=== PATIENT | female | born 1975 | race Caucasian/White ===

== ENCOUNTER 2025-03-21 20:39 | Outpatient (REF) | payer BC, SELFPAY ==
--- OUTSIDE RECORDS SUMMARY | 2025-03-21 13:40 | XMS_ITS | Encounter Summary ---
Author Organization [facility] Address [address] [place] [address] Care Team Providers Care Flat Drier Name Role Phone Cody Maya MD Primary Care Provider [phone] Reason for Visit * Reason Comments Well Women Visit Encounter Details Date Type Department Care Team (Late st Contact Info) Description 03/21/2025 1:40 PM EDT Office Visit [facility] [address] [place] [address] Darling Gabriel, RESEARCH LEADER [address] [facility] [place] [address] Bilateral sciatica (Primary Dx); Well woman exam with routine gynecological exam; Encounter for screening mammogram for malignant neoplasm of breast; Postmenopausal state Social History Tobacco Use Types Packs/Day Years Used Date Smoking Tobacco: Never Smokeless Tobacco: Never Alcohol Use Standard Drinks/Week Comments Not Currently 1 (1 standard drink = 0.6 oz pur e alcohol) Maybe once a week Comments Unknown Sex and Gender Information Value Date Recorded Sex Assigned at Not on file Legal Sex Female 7:16 PM EDT Gender Identity Not on file Sexual Orientation Not on file documented as of this encounter Last Filed Vital Signs Vital Sign Reading Time Taken Comments Blood Pressure 136/72 03/21/2025 1:47 PM EDT Pulse - - Temperature - - Respiratory Rate - - Oxygen Saturation - - Inhaled Oxygen Concentration - - Weight 99.3 kg (219 lb) 03/21/2025 1:47 PM EDT Height - - Body Mass Index 34.3 05/01/2024 3:11 PM EDT documented in this encounter Progress Notes * Darling Gabriel, RESEARCH LEADER - 03/21/2025 1:40 PM EDT Reason for Appointment: Patient ID: Ivon Lance is a 49 y.o. female who presents for Well Women Visit Patient presents today for Annual Exam. MEDICATIONS Current Outpatient Medications Medication Instructions acyclovir (Zovirax) 200 MG capsule 2 capsules, Oral, 3 times daily cholecalciferol (D3-5) 5,000 Units, Oral cloNIDine (Catapres) 0.1 MG tablet TAKE 1 TO 2 TABLETS BY MOUTH AT BEDTIME NEEDED FOR INSOMNIA dehydroepiandrosterone (DHEA) 10 mg, Oral, Daily empagliflozin (Jardiance) 10 MG 1 tablet, Oral, Daily Darlyn 1.5/30 1.5-30 MG-MCG tablet tablet 1 tablet, Oral, Daily meloxicam (MOBIC) 15 mg, Oral, Daily pantoprazole (ProtoNix) 40 MG EC tablet 1 tablet, Oral, Daily phentermine (ADIPEX-P) 37.5 mg, Oral, Daily before breakfast progesterone 100 MG capsule 1 capsule, Oral, Daily traZODone (DESYREL) 50 mg, Oral TURMERIC PO 1 capsule, Oral, 2 times daily ALLERGIES Allergies Allergen Reactions Celecoxib Swelling Rofecoxib Swelling Sumatriptan-Naproxen Sodium Swelling Other Reaction(s): swelling and rash Chlorhexidine Rash Metformin And Related Rash Wound Dressing Adhesive Rash PROBLEMS Active Ambulatory Problems Diagnosis Date Noted No Active Ambulatory Problems Resolved Ambulatory Problems Diagnosis Date Noted No Resolved Ambulatory Problems Past Medical History: Diagnosis Date Migraine Obesity Prediabetes HISTORY PAST MEDICAL HISTORY SOCIAL HISTORY Past Medical History: Diagnosis Date Migraine Obesity Prediabetes Social History Tobacco Use Smoking status: Never Smokeless tobacco: Never Vaping Use Vaping status: Never Used Substance Use Topics Alcohol use: Not Currently Alcohol/week: 1.0 standard drink of alcohol Types: 1 Shots of liquor per week Comment: Maybe once a week Drug use: Never FAMILY HISTORY Family History Problem Relation Name Age of Onset Diabetes Father Cancer Paternal Grandmother Diabetes Other SURGICAL HISTORY Past Surgical History: Procedure Laterality Date CARPAL TUNNEL RELEASE Bilateral CHOLECYSTECTOMY KNEE SURGERY Bilateral SHOULDER SURGERY Right 09/12/2013 shoulder arthroscopy SHOULDER SURGERY Right 02/18/2024 R shoulder scope- MTP REVIEW OF SYSTEMS Review of Systems: Review of Systems Constitutional: Negative. HENT: Negative. Eyes: Negative. Respiratory: Negative. Cardiovascular: Negative. Gastrointestinal: Negative. Genitourinary: Positive for vaginal discharge. Reports vaginal discharge and has begun taking RAW probiotic/ prebiotic over the last 3 weeks. Musculoskeletal: Negative. Skin: Negative. Neurological: Negative. All other systems reviewed and are negative. Hematological: Negative. Endocrine: Negative. Allergic/Immunologic: Negative. OBJECTIVE Objective: Physical Exam Constitutional: Appearance: Normal appearance. Genitourinary: Right Adnexa: not tender and no mass present. Left Adnexa: not tender and no mass present. No cervical discharge. Breasts: Breasts are soft. Right: Normal. Left: Normal. HENT: Head: Normocephalic. Nose: Nose normal. Mouth/Throat: Mouth: Mucous membranes are moist. Cardiovascular: Rate and Rhythm: Normal rate. Pulmonary: Effort: Pulmonary effort is normal. Abdominal: General: Bowel sounds are normal. Palpations: Abdomen is soft. Musculoskeletal: General: Normal range of motion. Cervical back: Normal range of motion. Comments: Complaints of low back pain that began this morning; she works at the [employer] and [employer]. She denies any incontinence or retention of bowel or bladder and no lower extremity weakness. Rates pain as 4-5 out of 10 and is going to see a Chiropractor today. She would like a steroid as this has helped her in the past. Neurological: General: No focal deficit present. Mental Status: She is alert. Skin: General: Skin is warm and dry. Findings: Erythema present. Psychiatric: Mood and Affect: Mood normal. Vitals and nursing note reviewed. Exam conducted with a development lead present. Vitals: Estimated body mass index is 34.3 kg/m?? as calculated from the following: Height as of 05/01/24: 5' 7 . Weight as of this encounter: 219 lb. BP: 136/72 No LMP recorded. ASSESSMENT & PLAN ICD-10-CM 1. Well woman exam with routine gynecological exam Z01.419 THIN PREP TIS PAP AND HR HPV DNA 2. Encounter for screening mammogram for malignant neoplasm of breast Z12.31 Bilateral screening mammogram Bilateral screening mammogram 3. Postmenopausal state Z78.0 DEXA bone density Annual Exam: Patient presents today for an annual exam. Patient states she is doing well and has no complaints. Pap was obtained without difficulty. Discussed history of recurrent BV and if no improvement with pro-pre biotic could trial the Boric Acid. Patient prescribed medrol dose pack for low back pain /sciatica that began this am. She is going to follow up with a Chiropractor today and PCP if low back pain does not improve. Orders Placed This Encounter Procedures Bilateral screening mammogram DEXA bone density Follow Up: Patient is to return in one year for annual unless needed otherwise. Documented by ANTOLIN Peguero on behalf of: Darling Gabriel NP documented in this encounter Miscellaneous Notes * Addendum Note - ANTOLIN Peguero - 03/21/2025 1:40 PM EDTAddended by: IVA ESQUEDA on: 03/21/2025 02:07 PM Modules accepted: Orders documented in this encounter Plan of Treatment Scheduled Orders Name Type Priority Associated Diagnoses Orde r Schedule Bilateral screening mammogram Imaging Routine Encounter for screening mammogram for malignant neoplasm of breast Expected: 03/21/2025, Expires: 05/22/2026 DEXA bone density Imaging Routine Postmenopausal state Expected: 03/21/2025 (Approximate), Expires: 03/21/2026 THIN PREP TIS PAP AND HR HPV DNA Pathology and Cytology Routine Well woman exam with routine gynecological exam Ordered: 03/21/2025 documented as of this encounter Visit Diagnoses Diagnosis Bilateral sciatica- Primary Sciatica Well woman exam with routine gynecological exam Routine gynecological examination Encounter for screening mammogram for malignant neoplasm of breast Postmenopausal state Asymptomatic postmenopausal status (age-related) (natural) documented in this encounter Care Teams Flat Drier Relationship Specialty Start Date End Date Cody Maya MD [address] [place] [address] PCP - General Route Supervisor 05/03/23 documented as of this encounter
--- OUTSIDE RECORDS SUMMARY | 2025-03-21 20:49 | XMS_ITS | Encounter Summary ---
Author Organization [facility] Address [address] [place] [address] Care Team Providers Care Deliverer Pharmacy Name Role Phone Cody Maya MD Primary Care Provider [phone] Encounter Details Date Type Department Care Team (Latest Contact Info) Description 03/14/2025 Travel Social History Tobacco Use Types Packs/Day Years [...] on file documented as of this encounter Plan of Treatment Not on file documented as of this encounter Visit Diagnoses Not on filedocumented in this encounter Care Teams Deliverer Pharmacy Relationship Specialty Start Date End Date Cody Maya MD [address] [place] [address] PCP - General Backup Administrative Coordinator 05/03/23 documented as of this encounter
--- OUTSIDE RECORDS SUMMARY | 2025-03-21 20:49 | XMS_ITS | Clinical Summary ---
Author Organization [facility] Address [address] [place] [address] Care Team Providers Care Roller Skate Repairer Name Role Phone Cody Maya MD Primary Care Provider [phone] Allergies Active Allergy Reactions Criticality Noted Date Comments Celecoxib Swelling 05/03/2023 Chlorhexidine Rash Low 02/29/2024 Metformin And Related Rash Low 09/30/2022 Rofecoxib Swelling 08/07/2015 Sumatriptan-Naproxen Sodium Swelling 08/07/20 15 Other Reaction(s): swelling and rash Wound Dressing Adhesive Rash Low 02/29/2024 Medications acyclovir (Zovirax) 200 MG capsule Take 2 capsules by mouth in the morning and 2 capsules in the evening and 2 capsules before bedtime. 04/27/2023 Active cholecalciferol (D3-5) 5,000 Units tablet Take 5,000 Units by mouth. Active cloNIDine (Catapres) 0.1 MG tablet TAKE 1 TO 2 TABLETS BY MOUTH AT BEDTIME NEEDED FOR INSOMNIA 02/03/2023 Active empagliflozin (Jardiance) 10 MG Take 1 tablet by mouth in the morning. Active meloxicam (Mobic) 15 MG tablet Take 15 mg by mouth in the morning. Active Darlyn 1.5/30 1.5-30 MG-MCG tablet tablet Take 1 tablet by mouth in the morning. 12/06/2022 Active pantoprazole (ProtoNix) 40 MG EC tablet Take 1 tablet by mouth in the morning. 04/27/2023 Active traZODone (Desyrel) 50 MG tablet Take 50 mg by mouth. 02/03/2023 Active TURMERIC PO Take 1 capsule by mouth in the morning and 1 capsule before bedtime. Active phentermine (Adipex-P) 37.5 MG tablet Take 37.5 mg by mouth in the morning. Take before meals. 01/26/2024 Active dehydroepiandro sterone (DHEA) 10 MG tablet Take 10 mg by mouth Daily 02/23/2024 Active progesterone 100 MG capsule Take 1 capsule by mouth Daily 02/23/2024 Active methylPREDNISol one (Medrol Dospak) 4 MG tabletsIndicati ons:Bilateral sciatica Day 1: 6 tablets Day 2: 5 tablets Day 3: 4 tablets Day 4: 3 tablets Day 5: 2 tablets Day 6: 1 tablet 21 tablet 03/21/2025 Active Active Problems No known active problems Encounters Date Type Department Care Team Description 03/21/2025 1:40 PM EDT [place] [address] Darling Gabriel, MAURISIO Bilateral sciatica (Primary Dx); Well woman exam with routine gynecological exam; Encounter for screening mammogram for malignant neoplasm of breast; Postmenopausal state 03/21/2025 Bamboo flowsheet [facility] [address] [place] [address] Darling Gabriel NP 03/14/2025 Travel 02/12/2025 1:40 PM EDT Office Visit [facility] [address] [place] [address] Pillo Urbano, Vaginal discharge; STD exposure 02/12/2025 External Result Encounter [facility] External Department Unsolicited Pillo Urbano, 02/12/2025 Bamboo flowsheet [facility] [address] [place] [address] Pillo Urbano, 02/06/2025 Travel from Last 3 Months Family History Medical History Relation Name Comments Diabetes Father Diabetes Other Cancer Paternal Grandmother Relation Name Status Comments Father Other Paternal Grandmother Social History Tobacco Use Types Packs/Day Years [...] on file Sexual Orientation Not on file Last Filed Vital Signs Vital Sign Reading Time Taken Comments Blood Pressure 136/72 03/21/2025 1:47 PM EDT Pulse - - Temperature 36.2 C (97.1 F) 02/29/2024 2:57 PM EDT Respiratory Rate - - Oxygen Saturation - - Inhaled Oxygen Concentration - - Weight 99.3 kg (219 lb) 03/21/2025 1:47 PM EDT Height 170.2 cm (5' 7 ) 05/01/2024 3:11 PM EDT Body Mass Index 34.3 05/01/2024 3:11 PM EDT Plan of Treatment Health Maintenance Due Date Last Done Comments CT Colonography 1973 FIT-DNA 1973 FIT 1973 FOBT 1973 Sigmoidoscopy 1973 Pap Smear 1994 Cervical Cancer Screening 10/26/2003 HPV/Cotest 10/26/2003 Mammogram 03/28/2025 03/28/2024, 03/28/2024, 03/25 Influenza Vaccine (#1) 2025 08/02/2022, 2019 Colonoscopy 05/19/2031 05/19/2021 Colorectal Cancer Screening 05/19/2031 Procedures Procedure Name Priority Date/Time Associated Diagnosis Comments RECURRENT VAGINITIS (HTRX) Routine 02/12/2025 2:46 PM EDT BI MAMMOGRAM SCREENING BILATERAL Routine 04/22/2020 12:00 PM EDT from Last 3 Months or Most Recently Relevant to Health Maintenance Results * RECURRENT VAGINITIS (HTRX) (02/12/2025 2:46 PM EDT) ATOPOBIUM VAGINAE 0 19.961 - 24.689 ppm 02/13/2025 6:36 AM EDT [facility] ATOPOBIUM VAGINAE Not Detected 19.961 - 24.689 ppm 02/13/2025 6:36 AM EDT [facility] BVAB 2,3 (BACTERIAL VAGINOSIS ASSOCIATED BACTERIA 2, 3); MOBILUNCUS SPP 0 19.961 - 24.689 ppm 02/13/2025 6:36 AM EDT [facility] BVAB 2,3 (BACTERIAL VAGINOSIS ASSOCIATED BACTERIA 2, 3); MOBILUNCUS SPP Not Detected 19.961 - 24.689 ppm 02/13/2025 6:36 AM EDT [facility] SIRI ALBICANS, PARAPSILOSIS, TROPICALIS 0 19.961 - 30.770 ppm 02/13/2025 6:36 AM EDT [facility] SIRI ALBICANS, PARAPSILOSIS, TROPICALIS Not Detected 19.961 - 30.770 ppm 02/13/2025 6:36 AM EDT [facility] SIRI GLABRATA 0 23.000 - 32.138 ppm 02/13/2025 6:36 AM EDT [facility] SIRI GLABRATA Not Detected 23.000 - 32.138 ppm 02/13/2025 6:36 AM EDT [facility] SIRI KRUSEI 0 23.000 - 32.271 ppm 02/13/2025 6:36 AM EDT [facility] SIRI KRUSEI Not Detected 23.000 - 32.271 ppm 02/13/2025 6:36 AM EDT [facility] CHLAMYDIA TRACHOMATIS 0 23.000 - 31.467 ppm 02/13/2025 6:36 AM EDT [facility] CHLAMYDIA TRACHOMATIS Not Detected 23.000 - 31.467 ppm 02/13/2025 6:36 AM EDT [facility] GARDNERELLA VAGINALIS 0 19.961 - 24.689 ppm 02/13/2025 6:36 AM EDT [facility] GARDNERELLA VAGINALIS Not Detected 19.961 - 24.689 ppm 02/13/2025 6:36 AM EDT [facility] MEGASPHAERA (TYPES 1, 2) 0 19.961 - 24.689 ppm 02/13/2025 6:36 AM EDT [facility] MEGASPHAERA (TYPES 1, 2) Not Detected 19.961 - 24.689 ppm 02/13/2025 6:36 AM EDT [facility] NEISSERIA GONORRHOEAE 0 23.000 - 32.117 ppm 02/13/2025 6:36 AM EDT [facility] NEISSERIA GONORRHOEAE Not Detected 23.000 - 32.117 ppm 02/13/2025 6:36 AM EDT [facility] TRICHOMONAS VAGINALIS 0 23.000 - 32.119 ppm 02/13/2025 6:36 AM EDT [facility] TRICHOMONAS VAGINALIS Not Detected 23.000 - 32.119 ppm 02/13/2025 6:36 AM EDT [facility] MYCOPLASMA GENITALIUM 0 19.961 - 24.689 ppm 02/13/2025 6:36 AM EDT [facility] MYCOPLASMA GENITALIUM Not Detected 19.961 - 24.689 ppm 02/13/2025 6:36 AM EDT [facility] Tissue 02/12/2025 2:46 PM EDT 02/13/2025 1:25 AM EDT Pillo Urbano DO LAB BLOOD ORDERABLES Final Resul t [facility] [address] [place] [address] * Bilateral screening mammogram (04/22/2020 12:00 PM EDT) Anatomical Region Laterality Modality Breast Bilateral Mammography Narrative 04/22/2020 12:00 PM EDT PERFORMED AT [facility] LOCATION:[id number] Procedure Note CONVERSION, GENERIC - 02/26/2023 PERFORMED AT [facility] LOCATION:[id number] Millie Wynn DISEASE AND INSECT CONTROL BOSS IMG BI PROCEDURES Final R esult from Last 3 Months or Most Recently Relevant to Health Maintenance Insurance [employer] Care Teams Roller Skate Repairer Relationship Specialty Start Date End Date Cody Maya MD [address] [place] [address] PCP - General Shipping Supervisor 05/03/23
--- OUTSIDE RECORDS SUMMARY | 2025-03-21 20:49 | XMS_ITS | Encounter Summary ---
Author Organization [facility] Address [address] [place] [address] Care Team Providers Care Bean Sorter Name Role Phone Cody Maya MD Primary Care Provider [phone] Encounter Details Date Type Department Care Team (Late st Contact Info) Description 03/21/2025 Bamboo flowsheet [facility] [address] [place] [address] Darling Gabriel, MAURISIO [address] [facility] [address] [place] [address] Social History Tobacco Use Types Packs/Day Years [...] on filedocumented in this encounter Care Teams Bean Sorter Relationship Specialty Start Date End Date Cody Maya MD [address] [place] [address] PCP - General Lockstitch Lining Setter 05/03/23 documented as of this encounter
--- OUTSIDE RECORDS SUMMARY | 2025-03-21 20:49 | XMS_ITS | Encounter Summary ---
Author Organization [facility] Address [address] [place] [address] Care Team Providers Care Pharmacy Sales Assistant Name Role Phone Cody Maya MD Primary Care Provider [phone] Encounter Details Date Type Department Care Team (Late st Contact Info) Description 02/14/2024 Orders Only [facility] [address] [place] [id number] Kali Blakely DO [address] [place] [address] Right shoulder pain, unspecified chronicity (Primary Dx) Social History Tobacco Use Types Packs/Day Years Used Date Smoking Tobacco: Never Smokeless Tobacco: Never Alcohol Use Standard Drinks/Week Comments Never 0 (1 standard drink = 0.6 oz pur e alcohol) Comments Unknown Sex and Gender Information Value Date Recorded Sex Assigned at Not on file Legal Sex Female 7:16 PM EDT Gender Identity Not on file Sexual Orientation Not on file documented as of this encounter Plan of Treatment Not on file documented as of this encounter Visit Diagnoses Diagnosis Right shoulder pain, unspecified chronicity- Primary documented in this encounter Care Teams Pharmacy Sales Assistant Relationship Specialty Start Date End Date Cody Maya MD [address] [place] [address] PCP - General Nurse Orthopedic 05/03/23 documented as of this encounter
--- OUTSIDE RECORDS SUMMARY | 2025-03-21 20:49 | XMS_ITS | Encounter Summary ---
Author Organization [facility] Address [address] [place] [address] Care Team Providers Care Deburring And Tooling Machine Operator Name Role Phone Cody Maya MD Primary Care Provider Encounter Details Date Type Department Care Team (Late st Contact Info) Description 01/28/2024 Abstract [facility] [address] [facility] [place] [phone] Malika Hale, RN [address] [place], [place] Social History Tobacco Use Types Packs/Day Years [...] on filedocumented in this encounter Care Teams Deburring And Tooling Machine Operator Relationship Specialty Start Date End Date Cody Maya MD [address] [place] [address] PCP - General Wool Spotter 05/03/23 documented as of this encounter
--- OUTSIDE RECORDS SUMMARY | 2025-03-21 20:49 | XMS_ITS | Encounter Summary ---
Author Organization [facility] Address [address], [address] [place] [address] Care Team Providers Care Color Repairer Name Role Phone Cody Maya DO Primary Care Provider [phone] Encounter Details Date Type Department Care Team (Late st Contact Info) Description 11/10/2023 Orders Only [facility] [address] [place] [address] Provider, MD Kishore Social History Tobacco Use Types Packs/Day Years Used Date Smoking Tobacco: Never Smokeless Tobacco: Never Alcohol Use Standard Drinks/Week Comments Not Currently 0 (1 standard drink = 0.6 oz pur e alcohol) AUDIT-C Answer Date Recorded Q1: How often do you have a drink containing alcohol? Never 09/30/2022 Q2: How many drinks containi ng alcohol do you have on a typical day when you are drinking? Patient does not drink Q3: How often do you have si x or more drinks on one occasion? Never 09/30/2022 Overall Financial Resource Strain (CARDIA) Answe r Date Recorded How hard is it for you to pa y for the very basics like food, housing, medical care, and heating? Not hard at all 04/27/2023 PHQ-2 Answer Date Recorded PHQ-9 Total Score 0 08/24/2023 Hunger Vital Sign Answer Date Recorded Within the past 12 months, y ou worried that your food would run out before you got the money to buy more. Never true 04/27/20 23 Within the past 12 months, t he food you bought just didn't last and you didn't have money to get more. Never true 04/27/2023 PRAPARE - Transportation Answer Date Re corded Lack of Transportation (Medical) Not on file 04/27/2023 In the past 12 months, has l ack of transportation kept you from meetings, work, or from getting things needed for daily living? No 04/27/2023 Housing Stability Vital Sign Answer Silvio e Recorded Unable to Pay for Housing in the Last Year Not o n file 04/27/2023 Number of Places Lived in the Last Year Not on f ile 04/27/2023 In the last 12 months, was t here a time when you did not have a steady place to sleep or slept in a half-way (including now)? No 04/27/2023 Food Insecurity Answer Date Recorded Within the past 12 months, y ou worried that your food would run out before you got the money to buy more. 1 04/27/2023 Within the past 12 months, t he food you bought just didn't last and you didn't have money to get more. 1 04/27/2023 Comments No Sex and Gender Information Value Date Recorded Sex Assigned at Not on file Legal Sex Female 6:00 PM EST Gender Identity Not on file Sexual Orientation Not on file documented as of this encounter Plan of Treatment Upcoming Encounters Date Type Department Care Team (Late st Contact Info) Description 05/09/2025 3:15 PM EDT Office Visit [facility] [address] [place] [address] Cody Maya DO [address] [place] [address] 3 month fu documented as of this encounter Procedures Procedure Name Priority Date/Time Associated Diagnosis Comments COLONOSCOPY Routine 05/19/2021 4:58 PM EDT documented in this encounter Results * HM COLONOSCOPY (05/19/2021 4:58 PM EDT) us Historical Provider HEALTH MAINTENANCE Final Result documented in this encounter Visit Diagnoses Not on filedocumented in this encounter Care Teams Color Repairer Relationship Specialty [place] [address] [place] [address] PCP - General Family Medicine 03/12/23 documented as of this encounter
--- OUTSIDE RECORDS SUMMARY | 2025-03-21 20:49 | XMS_ITS | Encounter Summary ---
Author Organization [facility] Address [address], [address] [place] [address] Care Team Providers Care Nipple Maker Name Role Phone Cody Maya DO Primary Care Provider [phone] Encounter Details Date Type Department Care Team (Late st Contact Info) Description 02/07/2024 Orders Only [facility] Care [address] [place], [place] [id number] Provider, MD Kishore Social History Tobacco Use Types Packs/Day Years Used Date Smoking Tobacco: Never Smokeless Tobacco: Never Alcohol Use Standard Drinks/Week Comments Yes 2 (1 standard drink = 0.6 oz pur [...] place to sleep or slept in a fdc (including now)? No 04/27/2023 Food Insecurity Answer [...] Description 05/09/2025 3:15 PM EDT Office Visit [facility] Care [address] [place] [address] Cody Maya DO [address] [place], [place] [id number] 3 month fu documented as of this encounter Procedures Procedure Name Priority Date/Time Associated Diagnosis Comments CBC Routine 02/03/2024 9:55 AM EDT documented in this encounter Results * CBC (02/03/2024 9:55 AM EDT) Blood BLOOD SPECIMEN / Unknown us Historical Provider HEMATOLOGY ORDERABLES Fin al Result documented in this encounter Visit Diagnoses Not on filedocumented in this encounter Care Teams Nipple Maker Relationship Specialty [place] [address] [place] [id number] PCP - General Family Medicine 03/12/23 documented as of this encounter
--- OUTSIDE RECORDS SUMMARY | 2025-03-21 20:49 | XMS_ITS | Encounter Summary ---
Author Organization [facility] Address [address] [place] [address] Care Team Providers Care Sliver Machine Operator Name Role Phone Cody Maya MD Primary Care Provider [phone] Encounter Details Date Type Department Care Team (Late st Contact Info) Description 02/16/2024 Abstract [facility] [address] [place] [id number] Kali Blakely, [address] [place] [address] Social History Tobacco Use Types Packs/Day Years [...] on filedocumented in this encounter Care Teams Sliver Machine Operator Relationship Specialty Start Date End Date Cody Maya MD [address] [place] [address] PCP - General Offshore Wind Turbine Technician 05/03/23 documented as of this encounter
--- OUTSIDE RECORDS SUMMARY | 2025-03-21 20:49 | XMS_ITS | Clinical Summary ---
Author Organization [facility] Address [address], [address] [place] [address] Care Team Providers Care Freight Rate Specialist Name Role Phone Alex Mayaory Natalee CHATMAN Primary Care Provider [phone] Allergies Active Allergy Reactions Criticality Noted Date Comments Metformin And Related Rash Low 09/30/2022 Sumatriptan-Naproxen Sodium 10/14/19 21 Rofecoxib 10/14/2020 Medications Cholecalciferol (VITAMIN D3) 125 MCG (5000 UT) TABS Take 1 tablet by mouth Active Turmeric 500 MG CAPS Take 1 capsule by mouth 2 times daily Active pantoprazole (PROTONIX) 40 MG tablet TAKE 1 TABLET BY MOUTH DAILY 90 tablet 3 4 Active acyclovir (ZOVIRAX) 200 MG capsule Take 2 capsules by mouth 3 times daily 30 capsule 5 4 Active cloNIDine (CATAPRES) 0.1 MG tabletIndications :Chronic insomnia Take 1 tablet by mouth at bedtime 180 tablet 3 4 Active DHEA 10 MG CAPSIndications:H ormone imbalance,Low serum progesterone Take 10 mg by mouth daily 30 capsule 2 4 Active empagliflozin (JARDIANCE) 10 MG tabletIndications :Type 2 diabetes mellitus without complication, without long-term current use of insulin (HCC) Take 1 tablet by mouth daily 90 tablet 3 4 Active meloxicam (MOBIC) 15 MG tablet Take 1 tablet by mouth daily as needed for Pain 90 tablet 3 4 Active Norethindrone Acet-Ethinyl Est 1.5-30 MG-MCG TABSIndications:H ormone imbalance Take 1 tablet by mouth daily 4 packet 3 4 Active pantoprazole (PROTONIX) 40 MG tablet Take 1 tablet by mouth daily 90 tablet 3 4 Active traZODone (DESYREL) 50 MG tabletIndications :Chronic insomnia Take 1 tablet by mouth nightly 90 tablet 3 4 Active progesterone (PROMETRIUM) 100 MG CAPS capsuleIndication s:Hormone imbalance,Low serum progesterone Take 1 capsule by mouth daily 90 capsule 3 4 Active phentermine (ADIPEX-P) 37.5 MG tabletIndications :Class 1 obesity due to excess calories without serious comorbidity with body mass index (BMI) of 33.0 to 33.9 in adult Take 1 tablet by mouth every morning (before breakfast) for 90 days. Max Daily Amount: 37.5 mg 30 tablet 2 5 05/06/20 25 Active fluconazole (DIFLUCAN) 150 MG tablet Take 1 tablet by mouth daily for 3 days 3 tablet 5 03/08/20 25 Active Problems Problem Noted Date Diagnosed Date Daytime somnolence 12/09/2023 Obstructive sleep apnea syndrome 12/09/2023 Diabetes mellitus Encounters Date Type Department Care Team Description 02/05/2025 3:45 PM EDT Office Visit [facility] Primary Care [address] [place], [place] [phone] Cody Maya, DO Class 1 obesity due to excess calories without serious comorbidity with body mass index (BMI) of 33.0 to 33.9 in adult (Primary Dx); Type 2 diabetes mellitus without complication, without long-term current use of insulin (HCC) from Last 3 Months Immunizations Immunization Administration Dates Next Due Influenza, FLUARIX, FLULAVAL , FLUZONE (age 6 mo+) and AFLURIA, (age 3 y+), Quadv PF, 0.5mL 06/20/2020 Social History Tobacco Use Types Packs/Day Years Used Date Smoking Tobacco: Never Smokeless Tobacco: Never Tobacco Cessation:Counseling Given: No Alcohol Use Standard Drinks/Week Comments Yes 2 (1 standard drink = 0.6 oz pur e alcohol) [facility] Utilities Answer Date Recorded In the past 12 months has [employer] (acquired by [employer] in 2014), [employer], or water company threatened to shut off services in your home? No 10/29/2024 AUDIT-C Answer Date Recorded Q1: How often [...] care, and heating? Not hard at all 07/26/2024 PHQ-2 Answer Date Recorded PHQ-9 Total Score 0 10/29/2024 Hunger Vital Sign Answer Date Recorded Within the past 12 months, y ou worried that your food would run out before you got the money to buy more. Never true 10/30/19 25 Within the past 12 months, t he food you bought just didn't last and you didn't have money to get more. Never true 10/29/2024 PRAPARE - Transportation Answer Date Re corded In the past 12 months, has l ack of transportation kept you from medical appointments or from getting medications? No 04/2025 In the past 12 months, has l ack of transportation kept you from meetings, work, or from getting things needed for daily living? No 10/29/2024 Housing Stability Vital Sign Answer Silvio e Recorded Unable to Pay for Housing in the Last Year Not o n file 04/27/2023 Number of Places Lived in the Last Year Not on f ile 04/27/2023 In the last 12 months, was t here a time when you did not have a steady place to sleep or slept in a detention (including now)? No 04/27/2023 Housing Stability Vital Sign Answer Silvio e Recorded In the last 12 months, was t here a time when you were not able to pay the mortgage or rent on time? No 10/29/2024 In the past 12 months, how m any times have you moved where you were living? 0 10/29/2024 At any time in the past 12 m [facility], were you homeless or living in a detention (including now)? No 10/29/2024 Food Insecurity Answer Date Recorded Within the past 12 months, y ou worried that your food would run out before you got the money to buy more. 1 10/29/2024 Within the past 12 months, t he food you bought just didn't last and you didn't have money to get more. 1 10/29/2024 Comments No Sex and Gender Information Value Date Recorded Sex Assigned at Not on file Legal Sex Female 6:00 PM EST Gender Identity Not on file Sexual Orientation Not on file Last Filed Vital Signs Vital Sign Reading Time Taken Comments Blood Pressure 138/80 02/05/2025 3:27 PM EDT Pulse 98 02/05/2025 3:27 PM EDT Temperature 36.4 C (97.5 F) 02/05/2025 3:27 PM EDT Respiratory Rate 12 08/24/2023 12:10 PM EST Oxygen Saturation 99% 02/05/2025 3:27 PM EDT Inhaled Oxygen Concentration - - Weight 98.9 kg (218 lb) 02/05/2025 3:27 PM EDT Height 172.7 cm (5' 8 ) 02/05/2025 3:27 PM EDT Body Mass Index 33.15 02/05/2025 3:27 PM EDT Plan of Treatment Upcoming Encounters Date Type Department Care Team (Late st Contact Info) Description 05/09/2025 3:15 PM EDT Office Visit [facility] Primary Care [address] [place] [address] Cody Maya DO [address] [place] [address] 3 month fu Health Maintenance Due Date Last Done Comments HIV screen 1988 Diabetic Alb to Cr ratio (uACR) test 10/26/1991 Diabetic retinal exam 10/26/1991 Hepatitis C screen 10/26/1991 DTaP/Tdap/Td vaccine (1 - Tdap) 1992 Hepatitis B vaccine (1 of 3 - 19+ 3-dose series) 1992 Pneumococcal 50+ years Vaccine (1 of 2 - PCV) 1992 Pap smear 1994 FIT/FOBT: Average risk 2018 Fecal-DNA (Cologuard): Average risk 2018 Sigmoidoscopy/CT colonography 2018 Shingles vaccine (1 of 2) 10/26/2023 COVID-19 Vaccine ( season) 2024 05/12/2021, 04/21/2021 Flu vaccine (#1) 03/23/2025 06/20/2020 Breast cancer screen 03/28/2025 03/28/2024, 12/18/2022, 04/22/2020 Depression Screen 10/29/2025 10/29/2024, 10/29/2024 A1C test (Diabetic or Prediabetic) 11/01/2025 11/01/2024, 07/26/2024, 11/21/2023, Additional history exists GFR test (Diabetes, CKD 3-4, OR last GFR 15-59) 11/10/2025 11/10/2024, 11/21/2023 Lipids 11/10/2025 11/10/2024, 10/23, 11/10/2022 Diabetic foot exam 02/05/2026 02/05/2025, 0 02/05/2025, 02/05/2025, Additional history exists Cervical cancer screen 04/30/2026 HPV (without or with Pap) 04/30/2026 04/30/2021 Colonoscopy 05/19/2031 05/19/2021 Colorectal Cancer Screen 05/19/2031 Diabetes screen Discontinued 11/01/2024, 12/11/2023, 11/21/2023, Additional history exists Hepatitis A vaccine Aged Out No longe r eligible based on patient's age to complete this topic Hib vaccine Aged Out No longer eligi ble based on patient's age to complete this topic Meningococcal (ACWY) vaccine Aged Out No longer eligible based on patient's age to complete this topic Meningococcal B vaccine Aged Out No l onger eligible based on patient's age to complete this topic Polio vaccine Aged Out No longer elig ible based on patient's age to complete this topic Procedures Procedure Name Priority Date/Time Associated Diagnosis Comments COMPREHENSIVE METABOLIC PANEL Routine 11/10/2024 8:26 AM EDT Encounter for routine adult health examination without abnormal findings LIPID, FASTING Routine 11/10/2024 8:26 AM EDT Encounter for routine adult health examination without abnormal findings POCT GLYCOSYLATED HEMOGLOBIN (HGB A1C) Routine 11/01/2024 4:35 PM EDT Type 2 diabetes mellitus without complication, without long-term current use of insulin (HCC) RENETTA WILNER DIGITAL SCREEN SELF REFERRAL W OR WO CAD BILATERAL Routine 03/28/2024 10:07 AM EDT Encounter for screening mammogram for breast cancer HM COLONOSCOPY Routine 05/19/2021 4:58 PM EDT HM HPV Routine 04/30/2021 1:03 PM EDT from Last 3 Months or Most Recently Relevant to Health Maintenance Results * (ABNORMAL) Lipid, Fasting (11/10/2024 8:26 AM EDT) Cholesterol, Fasting 200(H) 0 - 199 mg/dL 11/10/2024 8:26 AM EDT [facility] Comment: Cholesterol Guidelines: <200 Desirable 200-240 Borderline >240 Undesirable HDL 53 >40 mg/dL 11/10/2024 8:26 AM EDT [facility] Comment: HDL Guidelines: <40 Undesirable 40-59 Borderline >59 Desirable LDL Cholesterol 126(H) 0 - 100 mg/dL 11/10/2024 8:26 AM EDT [facility] Comment: LDL Guidelines: <100 Desirable 100-129 Near to/above Desirable 130-159 Borderline >159 Undesirable Direct (measured) LDL and calculated LDL are not interchangeable tests. Chol/HDL Ratio 3.8 11/10/2024 8:26 AM EDT [facility] Triglyceride, Fasting 104 0 - 149 mg/dL 11/10/2024 8:26 AM EDT [facility] Comment: Triglyceride Guidelines: <150 Desirable 150-199 Borderline 200-499 High >499 Very high Based on AHA Guidelines for fasting triglyceride, May 2012. VLDL 21 1 - 30 mg/dL 11/10/2024 8:26 AM EDT [facility] Blood BLOOD SPECIMEN / Unknown 11/10/2024 8:26 AM EDT 11/10/2024 8:27 AM EDT us Cody Maya DO CHEMISTRY ORDERABLES Final Re sult [facility] [address] [place] [address], [facility] [phone] [facility] [address] [place] [address], [facility] [phone] * (ABNORMAL) Comprehensive Metabolic Panel (11/10/2024 8:26 AM EDT) Sodium 135 135 - 144 mmol/L 11/10/2024 8:26 AM EDT [facility] Potassium 4.1 3.7 - 5.3 mmol/L 11/10/2024 8:26 AM EDT [facility] Chloride 103 98 - 107 mmol/L 11/10/2024 8:26 AM EDT [facility] CO2 26 20 - 31 mmol/L 11/10/2024 8:26 AM EDT [facility] Anion Gap 6(L) 9 - 17 mmol/L 11/10/2024 8:26 AM EDT [facility] Glucose 91 70 - 99 mg/dL 11/10/2024 8:26 AM EDT [facility] BUN 16 6 - 20 mg/dL 11/10/2024 8:26 AM T [facility] Creatinine 0.8 0.5 - 0.9 mg/dL 11/10/2024 8:26 AM EDT [facility] Est, Glom Filt Rate 89 >60 mL/min/1.7 3m2 11/10/2024 8:26 AM EDT [facility] Comment: These results are not intended for use in patients <18 years of age. eGFR results are calculated without a race factor using the 2020 CKD-EPI equation. Careful clinical correlation is recommended, particularly when comparing to results calculated using previous equations. The CKD-EPI equation is less accurate in patients with extremes of muscle mass, extra-renal metabolism of creatine, excessive creatine ingestion, or following therapy that affects renal tubular secretion. Calcium 8.9 8.6 - 10.4 mg/dL 11/10/2024 8:26 AM EDT [facility] Total Protein 6.9 6.4 - 8.3 g/dL 11/10/2024 8:26 AM EDT [facility] Albumin 3.9 3.5 - 5.2 g/dL 11/10/2024 8:26 AM EDT [facility] Albumin/Globulin Ratio 1.3 1.0 - 2.5 11/10/2024 8:26 AM EDT [facility] Total Bilirubin 0.4 0.3 - 1.2 mg/dL 11/10/2024 8:26 AM EDT [facility] Alkaline Phosphatase 84 35 - 104 U/L 11/10/2024 8:26 AM EDT [facility] ALT 19 5 - 33 U/L 11/10/2024 8:26 AM EDT [facility] AST 24 <32 U/L 11/10/2024 8:26 AM EDT [facility] Blood BLOOD SPECIMEN / Unknown 11/10/2024 8:26 AM EDT 11/10/2024 8:27 AM EDT us Cody Maya DO CHEMISTRY ORDERABLES Final Re sult [facility] [address] [place] [address], [facility] [phone] * POCT glycosylated hemoglobin (Hb A1C) (11/01/2024 4:35 PM EDT) Hemoglobin A1C 5.4 % BLOOD SPECIMEN / Unknown 11/01/2024 4:35 PM EDT us Cody Maya DO POINT OF CARE TEST ORDERABLES Final Result * RENETTA WILNER DIGITAL SCREEN SELF REFERRAL W OR WO CAD BILATERAL (03/28/2024 10:07 AM EDT) Anatomical Region Laterality Modality Breast Bilateral Mammography 03/28/2024 11:1 6 AM EDT Impressions 03/28/2024 11:30 AM EDT No mammographic evidence of malignancy BIRADS: BIRADS - CATEGORY 1 Negative. Normal interval follow-up is recommended in 12 months. OVERALL ASSESSMENT - NEGATIVE A letter of notification will be sent to the patient regarding the results. The [employer] recommends annual mammograms for women 40 years and older. Narrative 03/28/2024 11:30 AM EDT EXAMINATION: SCREENING DIGITAL BILATERAL MAMMOGRAM WITH TOMOSYNTHESIS, 03/28/2024 TECHNIQUE: Screening mammography of the bilateral breasts was performed with tomosynthesis. 2D standard and 3D tomosynthesis combination imaging performed through both breasts in the MLO and CC projection. Computer aided detection was utilized in the interpretation of this exam. COMPARISON: December 18, 2022 and April 22, 2020 HISTORY: Screening. FINDINGS: The breasts are heterogeneously dense which can obscure small masses. There is no dominant mass architectural distortion or concerning grouping of microcalcification in either breast. Cody Maya DO IM MAMMOGRAPHY ORDERABLES Fi nal Result * COLONOSCOPY (05/19/2021 4:58 PM EDT) Historical Provider HEALTH MAINTENANCE Final Result * HPV (04/30/2021 1:03 PM EDT) Impressions Bree Bustillo MA - 04/30/2021 1:03 PM EDT PAP [id number] Component Ref Range & Units 2 yr ago Comments HUMAN PAPILLOMA VIRUS 16+18+31+33+35+39+45+51+52+56+58+59+66+68 DNA: Negative Negative This nucleic acid amplification test detects fourteen high- risk HPV types (16,18,31,33,35,39,45,51,52,56,58,59,66,68) without differentiation. Performed at: [facility] [address] [place], [place] [id number] MD Soraida Giles Performed at: =[facility] [address] [place], [place] [id number] MD Soraida Giles CYTOLOGY REPORT:FIND:PT:CVX/VAG:DOC:CYTO STAIN Note TESTS RESULT FLAG UNITS REF RANGE LAB Clinician Provided Cytology Information Source.............Endoc[employer]ix No. of containers..01 ThinPrep Vial DIAGNOSIS: 01 NEGATIVE FOR INTRAEPITHELIAL LESION OR MALIGNANCY. CELLULAR CHANGES ASSOCIATED WITH INFLAMMATION ARE PRESENT. Specimen adequacy: 01 Satisfactory for evaluation. Endocervical and/or squamous metaplastic cells (endocervical component) are present. Performed by: Amandeep Milligan Associate Director Of Development ([facility]) . 01 Note: Note 01 The Pap smear is a screening test designed to aid in the detection of premalignant and malignant conditions of the uterine cervix. It is not a diagnostic procedure and should not be used as the sole means of detecting cervical cancer. Both false-positive and false-negative reports do occur. Test Methodology: Note 01 This liquid based ThinPrep(R) pap test was screened with the use of an image guided system. FLAG LEGEND: L-Low Normal,H-High Normal,LL-Alert Low,HH-Alert High <-Panic Low,>-Panic High,A-Abnormal,AA-Critical Abnormal Performed at: [address] [id number] Tisha Quigley MD, GYNECOLOGICAL BODY SITE ENDOCERVIX COLLECTION TECHNIQUE BRUSH-SPATULA PERFORMING LAB: see note EVELYNK - [facility] unless otherwise specified [address] [place] [address] Resulting Agency [facility] Specimen Collected: 04/30/21 Performed by: [facility] Last Resulted: 05/05/21 Received From: [facility] Result Received: 08/24/23 11:46 View Encounter us Historical Provider HEALTH MAINTENANCE Edited Result - Final from Last 3 Months or Most Recently Relevant to Health Maintenance Insurance [place] [address] [place] [phone] Care Teams Freight Rate Specialist Relationship Specialty Start Date End Date Cody Maya DO [address] [place], [place] [phone] PCP - General Family Medicine 03/12/23
--- OUTSIDE RECORDS SUMMARY | 2025-03-21 20:49 | XMS_ITS | Clinical Summary ---
Author Organization [facility] Address [address] [place] [id number] Care Team Providers Care Application Development Team Lead Name Role Phone Unavailable Primary Care Provider Unavailabl e Allergies Active Allergy Reactions Criticality Noted Date Comments Sumatriptan-Naproxen Swelling 08/07/2015 Rofecoxib Swelling 08/07/2015 Medications pantoprazole (PROTONIX) 40 mg grps Take 40 mg by mouth. Active citalopram (CELEXA) 20 mg tablet Take 20 mg by mouth once daily. Active acetaminophen-d ichloralphenazo ne-isomethepten e (MIDRIN) 65-100-325 mg per capsule Take 1 capsule by mouth four times daily as needed. Active ASPIRIN/ACETAMI NOPHEN/CAFFEINE (EXCEDRIN MIGRAINE ORAL) Take by mouth. Active doxepin capsule 10 mg Take 2 capsules by mouth daily at bedtime. 60 capsule 11 08/07/2015 Active Active Problems Problem Noted Date Diagnosed Date White matter abnormality on MRI of brain 015 Overview (08/07/2015): Most likely due to underlying migraine history Migraine with aura and witho ut status migrainosus, not intractable 08/07/2015 Pain in joint, lower leg 07/01/2007 Family History Medical History Relation Comments Diabetes Father type II Headache Other 2 sisters, broth er, mom, grandparents Cancer Paternal Aunt cervical Cancer Paternal Grandmother cervical Cancer Sister 6 cervical Cerebral Palsy [Other] Sister 7 spina bif kaushik Multiple Sclerosis Sister 7 uncertain if diagnosis is correct; not on meds Seizures Sister 7 Thyroid Sister 8 Diabetes Son 3 type I Relation Status Comments Brother Alive Daughter 1 Alive Daughter 2 Alive Father Alive Mother Alive Other Paternal Aunt Paternal Grandmother Sister 1 Alive Sister 2 Alive Sister 3 Alive Sister 4 Alive Sister 5 Alive Sister 6 Sister 7 Sister 8 Son 1 Alive Son 2 Alive Son 3 Social History Tobacco Use Types Packs/Day Years Used Date Smoking Tobacco: Never Alcohol Use Standard Drinks/Week Comments No 0 (1 standard drink = 0.6 oz pur e alcohol) Comments Unknown Sex and Gender Information Value Date Recorded Sex Assigned at Not on file Legal Sex Female 8:11 AM EST Gender Identity Not on file Sexual Orientation Not on file Occupation Industry Job Start Date Job End Date [employer] Not on file Not on file Not on f ile Last Filed Vital Signs Vital Sign Reading Time Taken Comments Blood Pressure 131/58 08/07/2015 10:18 AM EST Pulse 80 08/07/2015 10:18 AM EST Temperature - - Respiratory Rate - - Oxygen Saturation - - Inhaled Oxygen Concentration - - Weight 91.6 kg (202 lb) 08/07/2015 10:18 AM EST Height - - Body Mass Index - - Plan of Treatment Health Maintenance Due Date Last Done Comments Anxiety Screening 10/26/1991 Depression Screening 10/26/1991 HIV Screening 10/26/1991 Hepatitis C Screening 10/26/1991 DTaP,Tdap,Td Vaccine (1 - Tdap) 1992 Hepatitis B Vaccine (1 of 3 - 19+ 3-dose series) 10/25 Cervical Cancer Screening [address] Colonography 2018 Cologuard (FIT-DNA) 2018 Colonoscopy 2018 Colorectal Cancer Screening 2018 Diabetes Screening 2018 Fecal Occult Blood 2018 Lipid Screening 2018 Sigmoidoscopy 2018 Pneumococcal Vaccine: 50+ (1 of 1 - PCV) 10/26/2023 Shingrix Vaccine (1 of 2) 10/26/2023 Influenza Vaccine (#1) 2025 Insurance [employer]
[2025-03-26 11:08] LABS: Age Gdln ACOG Testing Note (.); IGP, Aptima HPV, rfx 16/18,45 Note (.)
== END 2025-03-21 20:40 | disposition home or self-care (01) ==
LOC: LAB 20:39
PROVIDERS: Visit Provider Nurse Practitioner Family
DX: Z01.419 Encounter for gynecological examination (general) (routine) without abnormal findings (principal)
CPT/HCPCS: 87624; 88175

== ENCOUNTER 2025-07-17 11:00 | Outpatient (OUT) | payer BC, SELFPAY ==
--- OUTSIDE RECORDS SUMMARY | 2025-07-10 13:10 | XMS_ITS | Encounter Summary ---
Author Organization [facility] Address [address] [place] [address] Care Team Providers Care Aluminizer Name Role Phone Cody Maya MD Primary Care Provider [phone] Reason for Visit * ReasonCommentstongueMucocele of tongue Encounter Details DateTypeDepartmentCare Team (Latest Contact Info)Uwriocvqtxb30/18/2025 1:10 PM ESTOffice Visit [facility] [address] [facility] [place] [address] [place] [phone] Flaquita Barajas MD [address] [facility] [address] [place], [place] [id number] Tongue mass (Primary Dx) Social History Tobacco UseTypesPacks/DayYears UsedDateSmoking Tobacco: NeverSmokeless Tobacco: NeverAlcohol UseStandard Drinks/WeekCommentsNot Currently1 (1 standard drink = 0.6 oz pure alcohol)Maybe once a weekCommentsUnknownSex and Gender InformationValueDate RecordedSex Assigned at BirthNot on fileLegal SexFemale 11/04/2022 7:16 PM EDTGender IdentityNot on fileSexual OrientationNot on file documented as of this encounter Last Filed Vital Signs Vital SignReadingTime TakenCommentsBlood Xiookpoe362/6807/10/2025 1:02 PM EST [id number] 1:02 PM ESTTemperature--Respiratory Rate--Oxygen Saturation-- Inhaled Oxygen Concentration--Jzbkve04.9 kg (218 lb)07/10/2025 1:02 PM ESTHeight 170.2 cm (5' 7 )07/10/2025 1:02 PM ESTBody Mass Index34.14109/09/2024 1:02 PM EST documented in this encounter Progress Notes * Flaquita Barajas MD - 07/10/2025 1:10 PM EST Subjective Patient ID: Ivon Lance is a 49 y.o. female who presents for tongue (Mucocele of tongue) Pt reports a few month h/o a RT lateral tongue nodule. Fluctuates in size and pain. No tx or bx. Review of Systems All other systems reviewed and are negative. Family History[1] Active Ambulatory Problems Diagnosis Date Noted Calcaneal spur of left foot 07/04/2025 Closed nondisplaced fracture of base of second metacarpal bone of right hand 07/04/2025 Contusion of hand 07/04/2025 Daytime somnolence 12/09/2023 Diabetes mellitus (HCC) 07/04/2025 Equinus deformity of foot 07/04/2025 Migraine with aura and without status migrainosus, not intractable 08/07/2015 Obesity 07/04/2025 Obstructive sleep apnea syndrome 12/09/2023 Pain in joint, lower leg 07/01/2007 Plantar fascial fibromatosis 07/04/2025 Primary localized osteoarthrosis of shoulder region 07/04/2025 White matter abnormality on MRI of brain 08/07/2015 Resolved Ambulatory Problems Diagnosis Date Noted No Resolved Ambulatory Problems Past Medical History: Diagnosis Date Migraine Prediabetes Surgical History[2] Allergies[3] Medications Ordered Prior to Encounter[4] Objective Last Recorded Vitals Vitals: 07/10/25 1302 BP: 123/68 Pulse: 94 ENT Physical Exam Constitutional Appearance: patient appears well-developed, well-nourished and well-groomed, Head and Face Appearance: head appears normal and face appears atraumatic; Ear Ear Canals: right ear canal normal; left ear canal normal; Tympanic Membranes: right tympanic membrane normal; left tympanic membrane normal; Nose External Nose: nares patent bilaterally; external nose normal; Internal Nose: septum normal; Oral Cavity/Oropharynx Tongue: tongue mass present; Oral mucosa: normal; Hard palate: normal; Soft palate: normal; Tonsils: normal; OC/OP comments: 3mm sessile nodule RT lat tongue Neck Neck: neck normal; neck palpation normal; Thyroid: thyroid normal; Respiratory Inspection: breathing unlabored; normal breathing rate; Auscultation: breath sounds are clear; Cardiovascular Inspection: extremities are warm and well perfused; no peripheral edema present; Auscultation: regular rate and rhythm; Assessment/Plan Diagnoses and all orders for this visit: Tongue mass Pt has a nodule on the lateral tongue most c/w a fibroma. It is bothersome and symptomatic. I will plan removal under local anesthesia [1] Family History Problem Relation Name Age of Onset Diabetes Father Isaías Cancer Paternal Grandmother Malika Diabetes Other Osteoarthritis Mother Yenni Migraines Maternal Grandfather Hernan [2] Past Surgical History: Procedure Laterality Date CARPAL TUNNEL RELEASE Bilateral CHOLECYSTECTOMY KNEE SURGERY Bilateral SHOULDER SURGERY Right 09/12/2013 shoulder arthroscopy SHOULDER SURGERY Right 02/18/2024 R shoulder scope- MTP [3] Allergies Allergen Reactions Celecoxib Swelling Rofecoxib Swelling Sumatriptan-Naproxen Sodium Swelling Other Reaction(s): swelling and rash Chlorhexidine Rash Metformin And Related Rash Wound Dressing Adhesive Rash [4] Current Outpatient Medications on File Prior to Visit Medication Sig Dispense Refill acyclovir (Zovirax) 200 MG capsule Take 2 capsules by mouth in the morning and 2 capsules in the evening and 2 capsules before bedtime. cholecalciferol (D3-5) 5,000 Units tablet Take 5,000 Units by mouth cloNIDine (Catapres) 0.1 MG tablet dehydroepiandrosterone (DHEA) 10 MG tablet Take 10 mg by mouth Daily empagliflozin (Jardiance) 10 MG Take 1 tablet by mouth Daily Darlyn 1.5/30 1.5-30 MG-MCG tablet tablet Take 1 tablet by mouth Daily meloxicam (Mobic) 15 MG tablet Take 15 mg by mouth Daily pantoprazole (ProtoNix) 40 MG EC tablet Take 1 tablet by mouth Daily progesterone 100 MG capsule Take 1 capsule by mouth Daily traZODone (Desyrel) 50 MG tablet Take 50 mg by mouth TURMERIC PO Take 1 capsule by mouth in the morning and 1 capsule before bedtime. phentermine (Adipex-P) 37.5 MG tablet Take 37.5 mg by mouth in the morning. Take before meals. No current facility-administered medications on file prior to visit. documented in this encounter Plan of Treatment DateTypeDepartmentCare Team (Latest Contact Info)Osvzgtfypas15/12/2025 1:30 PM ESTOffice Visit [facility] [address] [facility] [place] [address] [place] [address] Flaquita Barajas MD [address] [facility] [address] [place] [address] documented as of this encounter Visit Diagnoses Diagnosis Tongue mass- Primary Swelling, mass, or lump in head and neck documented in this encounter Care Teams Team MemberRelationshipSpecialtyStart DateEnd Date Cody Maya MD [address] [place] [address] PCP - GeneralGeneral Practice05/03/23documented as of this encounter
--- OUTSIDE RECORDS SUMMARY | 2025-07-17 11:03 | XMS_ITS | Encounter Summary ---
Author Organization [facility] Address [address] [place] [address] Care Team Providers Care Faceter Name Role Phone Cody Maya MD Primary Care Provider [phone] Encounter Details DateTypeDepartmentCare Team (Latest Contact Info)Izplaevblsy76/18/2025Travel Social History Tobacco UseTypesPacks/DayYears UsedDateSmoking Tobacco: NeverSmokeless Tobacco: NeverAlcohol UseStandard Drinks/WeekCommentsNot Currently1 (1 standard drink = 0.6 oz pure alcohol)Maybe once a weekCommentsUnknownSex and Gender InformationValueDate RecordedSex Assigned at BirthNot on fileLegal SexFemale 11/04/2022 7:16 PM EDTGender IdentityNot on fileSexual OrientationNot on file documented as of this encounter Plan of Treatment DateTypeDepartmentCare Team (Latest Contact Info)Cxowdrgeilq22/12/2025 1:30 PM ESTOffice Visit [facility] [address] [place] [address] [place] [phone] Flaquita Barajas MD 112 [facility] [address] [place] [address] documented as of this encounter Visit Diagnoses Not on filedocumented in this encounter Care Teams Team MemberRelationshipSpecialtyStart DateEnd Date Cody Maya MD [address] [place], [place] [phone] PCP - GeneralGeneral Practice05/03/23documented as of this encounter
--- OUTSIDE RECORDS SUMMARY | 2025-07-17 11:03 | XMS_ITS | Encounter Summary ---
Author Organization [facility] Address [address] [place] [address] Care Team Providers Care Securities Trader Name Role Phone Cody Maya MD Primary Care Provider [phone] Encounter Details DateTypeDepartmentCare Team (Latest Contact Info)Goxhwlsnlgb57/18/2025amboo flowsheet [facility] [address] [place] [address] [place] [phone] Flaquita Barajas MD [address] [facility] [address] [place] [address] Social History Tobacco UseTypesPacks/DayYears UsedDateSmoking Tobacco: NeverSmokeless Tobacco: NeverAlcohol UseStandard Drinks/WeekCommentsNot Currently1 (1 standard drink = 0.6 oz pure alcohol)Maybe once a weekCommentsUnknownSex and Gender InformationValueDate RecordedSex Assigned at BirthNot on fileLegal SexFemale 11/04/2022 7:16 PM EDTGender IdentityNot on fileSexual OrientationNot on file documented as of this encounter Plan of Treatment DateTypeDepartmentCare Team (Latest Contact Info)Zbfzgpgjxuc62/12/2025 1:30 PM ESTOffice Visit [facility] [address] [place] [address] [facility] [place] [address] Flaquita Barajas MD [address] [place] [address] [place], [place] [phone] documented as of this encounter Visit Diagnoses Not on filedocumented in this encounter Care Teams Team MemberRelationshipSpecialtyStart DateEnd Date Cody Maya MD [address] [place] [address] PCP - GeneralGeneral Practice05/03/23documented as of this encounter
--- OUTSIDE RECORDS SUMMARY | 2025-07-17 11:03 | XMS_ITS | Clinical Summary ---
Author Organization [facility] Address [address], [address] [place] [address] Care Team Providers Care Jr. Java Developer Name Role Phone Francesco Cody Natalee CHATMAN Primary Care Provider [phone] Allergies Active AllergyReactionsCriticalityNoted DateCommentsMetformin And RelatedRashLow 09/30/2022Sumatriptan-Naproxen Plpsdo6410/14/20208261Vguspggpo81/22/2021 Medications MedicationSigDispense QuantityRefillsLast FilledStart DateEnd DateStatus Cholecalciferol (VITAMIN D3) 125 MCG (5000 UT) TABS Take 1 tablet by mouthActive Turmeric 500 MG CAPS Take 1 capsule by mouth 2 times dailyActive pantoprazole (PROTONIX) 40 MG tablet TAKE 1 TABLET BY MOUTH DAILY 90 tablet ctive acyclovir (ZOVIRAX) 200 MG capsule Take 2 capsules by mouth 3 times daily 30 capsule ctive cloNIDine (CATAPRES) 0.1 MG tablet Indications:Chronic insomniaTake 1 tablet by mouth at bedtime 180 tablet ctive DHEA 10 MG CAPS Indications:Hormone imbalance,Low serum progesteroneTake 10 mg by mouth daily 30 capsule ctive empagliflozin (JARDIANCE) 10 MG tablet Indications:Type 2 diabetes mellitus without complication, without long-term current use of insulin (HCC)Take 1 tablet by mouth daily 90 tablet ctive meloxicam (MOBIC) 15 MG tablet Take 1 tablet by mouth daily as needed for Pain 90 tablet ctive Norethindrone Acet-Ethinyl Est 1.5-30 MG-MCG TABS Indications:Hormone imbalanceTake 1 tablet by mouth daily 4 packet ctive pantoprazole (PROTONIX) 40 MG tablet Take 1 tablet by mouth daily 90 tablet ctive traZODone (DESYREL) 50 MG tablet Indications:Chronic insomniaTake 1 tablet by mouth nightly 90 tablet ctive progesterone (PROMETRIUM) 100 MG CAPS capsule Indications:Hormone imbalance,Low serum progesteroneTake 1 capsule by mouth daily 90 capsule ctive baclofen (LIORESAL) 10 MG tablet Indications:Chronic bilateral low back pain without sciaticaTake 1 tablet by mouth 3 times daily 30 tablet 05/02/2025tive Active Problems ProblemNoted DateDiagnosed DateDaytime rtmfbdtahb59/18/2024Obstructive sleep apnea urebhxsm76/18/2024iabetes mellitus Encounters DateTypeDepartmentCare JiohDzuxrrurrhf59/01/2025 2:41 PM EDT - 05/25/2025 11:59 PM EDTHospital Encounter [facility] [address] [place] [address] Encounter for screening mammogram for malignant neoplasm of breast Discharge Disposition: Home or Self Care05/23/2025 2:41 PM EDT - 05/25/2025 11:59 PM EDTHospital Encounter [facility] Dexa Scan [address] [place] [address] Postmenopausal status Discharge Disposition: Home or Self Care05/13/2025 7:50 AM EDT - 05/13/2025 11:59 PM EDTHospital Encounter [facility] [address] [place] [address] Hormone imbalance; Vitamin D deficiency; Type 2 diabetes mellitus without complication, without long-term current use of insulin (HCC) Discharge Disposition: Home or Self Care05/10/2025Transcribe Orders [facility] [address] [place] [address] Darling Gabriel APRN - CNP Postmenopausal status (Primary Dx); Encounter for screening mammogram for malignant neoplasm of cdawfg0205/10/2025 Transcribe Orders [facility] [address] [place] [id number] Darling Gabriel APRN - CNP Postmenopausal status (Primary Dx); Encounter for screening mammogram for malignant neoplasm of ifzyld8005/09/2025 3:15 PM EDTOffice Visit [facility] [address] [place] [address] Cody Maya DO Chronic bilateral low back pain without sciatica (Primary Dx); Mucocele of tongue; Class 1 obesity due to excess calories without serious comorbidity with body mass index (BMI) of 33.0 to 33.9 in adult; Lichen sclerosus; Hormone imbalance; Vitamin D deficiency; Type 2 diabetes mellitus without complication, without long-term current use of insulin (HCC); Neoplasm of uncertain behavior of skin of nose05/02/2025 10:45 AM EDT Telemedicine [address] [address] Cody Maya DO Chronic bilateral low back pain without sciatica (Primary Dx)from Last 3 Months Immunizations ImmunizationAdministration DatesNext DueInfluenza, FLUARIX, FLULAVAL, FLUZONE (age 6 mo+) and AFLURIA, (age 3 y+), Quadv PF, 0.5mL06/20/2020 Social History Tobacco UseTypesPacks/DayYears UsedDateSmoking Tobacco: NeverSmokeless Tobacco: Never Tobacco Cessation:Counseling Given: No Alcohol UseStandard Drinks/WeekCommentsYes2 (1 standard drink = 0.6 oz pure alcohol)[facility] UtilitiesAnswerDate RecordedIn the past 12 months has the [employer], gas, oil, or water [employer] threatened to shut off services in your home?No 5AUDIT-CAnswerDate RecordedQ1: How often do you have a drink containing alcohol?Never09/30/2022Q2: How many drinks containing alcohol do you have on a typical day when you are drinking?Patient does not drink09/30/2022Q3: How often do you have six or more drinks on one occasion?Never09/30/2022Overall Financial Resource Strain (CARDIA)AnswerDate RecordedHow hard is it for you to pay for the very basics like food, housing, medical care, and heating?Not hard at all 4PHQ-2AnswerDate RecordedPHQ-9 Total Suwrk680Hunger Vital Sign AnswerDate RecordedWithin the past 12 months, you worried that your food would run out before you got the money to buymore.Never true10/29/2024Within the past 12 months, the food you bought just didn't last and you didn't have money to get more.Never true10/29/2024PRAPARE - TransportationAnswerDate RecordedIn the past 12 months, has lack of transportation kept you from medical appointments or from getting medications?No10/29/2024In the past 12 months, has lack of transportation kept you from meetings, work, or from getting things needed for daily living?No10/29/2024Housing Stability Vital SignAnswerDate RecordedUnable to Pay for Housing in the Last YearNot on file04/27/2023Number of Places Lived in the Last YearNot on file04/27/2023In the last 12 months, was there a time when you did not have a steady place to sleep or slept in [facility] (including now)?No04/27/2023Housing Stability Vital SignAnswerDate RecordedIn the last 12 months, was there a time when you were not able to pay the mortgage or rent on time?No10/29/2024In the past 12 months, how many times have you moved where you were living?t any time in the past 12 months, were you homeless or living in a long-term (including now)?No10/29/2024Food InsecurityAnswerDate RecordedWithin the past 12 months, you worried that your food would run out before you got the money to buymore.Within the past 12 months, the food you bought just didn't last and you didn't have money to get more.1 10/29/2024CommentsNoSex and Gender InformationValueDate RecordedSex Assigned at ZvlmkVynovv78/08/2025 1:04 PM EDTLegal AqmHshmfl96/10/2013 6:00 PM ESTGender IdentityNot on fileSexual OrientationNot on file Last Filed Vital Signs Vital SignReadingTime TakenCommentsBlood Bgmcehxk494/8809/ 3:22 PM EDT Iichf247705/09/2025 3:21 PM YEFNozgrpzdhue41.1 ??C (96.9 ??F)05/09/2025 3:21 PM EDTRespiratory Ivwq1243 12:10 PM ESTOxygen Ptglroaqqp26%05/09/2025 3:21 PM EDTInhaled Oxygen Concentration--Smmcnw204.4 kg (225 lb 12.8 oz)05/09/2025 3:21 PM RXXFsordr153.7 cm (5' 8 )05/09/2025 3:21 PM EDTBody Mass Index34.33 05/09/2025 3:21 PM EDT Plan of Treatment DateTypeDepartmentCare Team (Latest Contact Info)Bbcwodawemm34/07/2026 4:00 PM ESTOffice Visit [facility] [address] [place] [phone] Cody Maya DO [address] [place] [address] 3 mo f/u011/27/2025 3:30 PM EDTOffice Visit [facility] [address] [place] [address] Cody Maya, DO [address] [place] [address] 3 mo f/uHealth MaintenanceDue DateLast DoneCommentsHIV rnxmyj7310/25/1988Diabetic retinal exam10/26/1991Hepatitis C wcklqd7110/26/1991DTaP/Tdap/Td vaccine (1 - Tdap)1992Hepatitis B vaccine (1 of 3 - 19+ 3-dose series)1992 Pneumococcal 50+ years Vaccine (1 of 2 - PCV)1992Pap smear1994 FIT/FOBT: Average risk2018Fecal-DNA (Cologuard): Average risk2018 Sigmoidoscopy/CT pozfatvgngqb64/05/2019Shingles vaccine (1 of 2)10/26/2023Flu vaccine (#1)512/06/2022, 06/20/2020COVID-19 Vaccine ( season)9/, 1Depression Ughvau12603/04/2025, 5A1C test (Diabetic or Prediabetic)/07/2025, 07/26/2024, 11/21/2023, Additional history existsGFR test (Diabetes, CKD 3-4, OR last GFR 15-59)/, 11/21/20235955Fjkuym11/21/202603/, 11/21/2023, 3Diabetic foot exam/, 02/05/2025, 02/05/2025, Additional history existsCervical cancer jtlpgo2304/30/2026HPV (without or with Pap)/iabetic Alb to Cr ratio (uACR) test/ Breast cancer qathpl74, 03/28/2024, 12/18/2022, Additional history dxigmmKciauieipli57/27/203109/1Colorectal Cancer Vzqjud2005/19/2031 Diabetes hxpiqvTsqcgiohqhjb91/12/2025, 07/26/2024, 11/21/2023, Additional history existsHepatitis A vaccineAged OutNo longer eligible based on patient's age to complete this topicHib vaccineAged OutNo longer eligible based on patient's age to complete this topicMeningococcal (ACWY) vaccineAged OutNo longer eligible based on patient's age to complete this topicMeningococcal B vaccineAged OutNo longer eligible based on patient's age to complete this topic Polio vaccineAged OutNo longer eligible based on patient's age to complete this topic Procedures Procedure NamePriorityDate/TimeAssociated DiagnosisCommentsMAM WILNER DIGITAL SCREEN KVOOGTECEIpceqkg74/01/2025 4:18 PM EDT Encounter for screening mammogram for malignant neoplasm of breast DEXA BONE DENSITY AXIAL HZBHTSOHTvcqnlg91/01/2025 4:07 PM EDT Postmenopausal status ALBUMIN/CREATININE RATIO, EUJUHKslctve63/21/2025 7:57 AM EDT Type 2 diabetes mellitus without complication, without long-term current use of insulin (HCC) TSH REFLEX TO TU7Gemfjin08/21/2025 7:56 AM EDT Hormone imbalance VITAMIN D 25 BIRJPKQYbyklmr30/21/2025 7:56 AM EDT Vitamin D deficiency CORTISOL KTGGYJqkoows48/21/2025 7:56 AM EDT Hormone imbalance ESTROGENS, YHIAKOQTGYNQMjqgqpz57/21/2025 7:56 AM EDT Hormone imbalance DHEA-FRDQDEYSvlzpih70/21/2025 7:56 AM EDT Hormone imbalance TESTOSTERONE, FREE, TKLNCMaspujo19/21/2025 7:56 AM EDT Hormone imbalance COMPREHENSIVE METABOLIC HULWCBdbuobp36/21/2025 8:26 AM EDT Encounter for routine adult health examination without abnormal findings LIPID, AITEYOMSlhjwaq02/21/2025 8:26 AM EDT Encounter for routine adult health examination without abnormal findings POCT GLYCOSYLATED HEMOGLOBIN (HGB A1C)Skgzvpi2311/01/2024 4:35 PM EDT Type 2 diabetes mellitus without complication, without long-term current use of insulin (HCC) HM ECMLBGYULYFUhsjcdz90/27/2021 4:58 PM EDTHM PPGGolgmzw94/08/2021 1:03 PM EDT from Last 3 Months or Most Recently Relevant to Health Maintenance Results * RENETTA WILNER DIGITAL SCREEN BILATERAL (05/23/2025 4:18 PM EDT)Anatomical Region LateralityModalityBreastBilateralMammographySpecimen (Source)Anatomical Location / LateralityCollection Method / VolumeCollection TimeReceived Time 05/23/2025 4:18 PM EDT Impressions 05/24/2025 8:06 AM EDT No evidence of malignant breast disease. Annual screening mammography is recommended. BIRADS: 1 - Negative, no evidence of malignancy. Normal interval followup in 12 months. OVERALL ASSESSMENT- NEGATIVE A letter of notification will be sent to the patient regarding the results. Guidelines for Early Breast Cancer Detection: -Annual mammography screening begins at the age of 40 and continues for as long as the patient is in good health. -Women at increased risk (e.g., family history, genetic tendency, past breast cancer) should discuss with their doctor about the benefits and limitations of starting mammography screening earlier, having additional test (e.g., breast ultrasound, breast MRI) or having more frequent exams. Screening breast MRI is recommended for women with a strong family history of breast or ovarian cancer and women who were treated for Hodgkin's disease. -Dense breast parenchyma makes detection of small lesions difficult on mammography. Consider breast ultrasound as an additional tool. -7-10% of cancers are not identified by mammography. Any palpable findings should be evaluated independently of this report. -A negative mammogram should not delay biopsy if a dominant or clinically suspicious mass is present. Approximately 20% of cancers are not identified by screening mammography. False-negative results occur when mammograms appear normal even though breast cancer is present. False-positive reports average 6-10%. -As per MQSA (mammography quality standards act) requirements and the ACR ([employer] [employer]) recommendations, a letter has been sent to the referring physician and/or to the patient. -Disclaimer: Please note that mammogram is not 100% accurate in diagnosis of breast cancer. A routine breast exam is recommended to correlate with mammographic findings.- -Any palpable abnormality must be assessed clinically. If the patient has a new palpable abnormality, then a diagnostic mammogram and/or breast ultrasound is indicated if clinically appropriate. - Given the density of the tissue, if breast tissue is Heterogeneously or Extremely Dense, recommend additional screening with bilateral MRI or Automated Breast Ultrasound (ABUS) in accordance with [place] law HB 371. -We appreciate being involved in this patient's care. Performing Facility: [address] [address] Narrative 05/24/2025 8:06 AM EDT EXAM: RENETTA WILNER DIGITAL SCREEN BILATERAL HISTORY: Encounter for screening mammogram for malignant neoplasm of breast. TC score is 9.3% COMPARISON: 03/28/2024 12/10/2022 TECHNIQUE: Bilateral full-field digital MLO and CC mammographic views were obtained with 3-D breast tomosynthesis. CAD was utilized FINDINGS: BREAST DENSITY CODE: The breasts are heterogeneously dense, which may obscure small masses. No breast mass, area of architectural distortion, or cluster of suspicious microcalcifications is seen. Authorizing ProviderResult TypeResult StatusKrkenyon Gabriel MOTOR TEACHER - CNPIMG MAMMOGRAPHY ORDERABLESFinal Result * DEXA BONE DENSITY AXIAL SKELETON (05/23/2025 4:07 PM EDT)Anatomical Region LateralityModalityHead, C-spine, T-spine, L-spine, ChestRadiographic Imaging Specimen (Source)Anatomical Location / LateralityCollection Method / Volume Collection TimeReceived Time05/23/2025 4:07 PM EDT Impressions 05/24/2025 1:01 PM EDT Normal bone mineral density. Pharmacologic treatment recommendations * No uniform recommendation applies to all patients. Management plans must be individualized. * Consider initiating pharmacologic treatment in postmenopausal women and men >= 50 years of age who have the following: Primary fracture prevention: * T-score <= - 2.5 at the femoral neck, total hip, lumbar spine, 33% radius (some uncertainty with existing data) by DXA. * Low bone mass (osteopenia: T-score between - 1.0 and - 2.5) at the femoral neck or total hip by DXA with a 10-year hip fracture risk >= 3% or a 10-year major osteoporosis-related fracture risk >= 20% (i.e., clinical vertebral, hip, forearm, or proximal humerus) based on the [place]-adapted FRAXregistered model. Secondary fracture prevention: * Fracture of the hip or vertebra regardless of BMD [4, 5]. * Fracture of proximal humerus, pelvis, or distal forearm in persons with low bone mass (osteopenia: T-score between - 1.0 and - 2.5). The decision to treat should be individualized in persons with a fracture of the proximal humerus, pelvis, or distal forearm who do not have osteopenia or low BMD [12, 13]. Radha MS, Karoline SL, Vale KL, Chanda EM, Kolton KG, AJ, [place] ES. The clinician's guide to prevention and treatment of osteoporosis. Osteoporos Int. 2021;33(10):0292-0685. doi: 10.1007/v00610-658-63059-i. Epub 2021Dec 18. Erratum in: Osteoporos Int. 2021Mar 19;: PMID: 24840670; PMCID: [id number]. Narrative 05/24/2025 1:01 PM EDT EXAM: DEXA BONE DENSITY AXIAL SKELETON HISTORY: Postmenopausal status. COMPARISON: None. TECHNIQUE: Keniu RDF Scanner [id number]. FINDINGS: T-score lumbar spine normal at 2.7. T-score hips normal with mean total hip T-score 1.4. Procedure Note Julius Zaragoza Jr., MD - 05/24/2025 EXAM: DEXA BONE DENSITY AXIAL SKELETON HISTORY: Postmenopausal status. COMPARISON: None. TECHNIQUE: Keniu RDF Scanner [id number]. FINDINGS: T-score lumbar spine normal at 2.7. T-score hips normal with mean total hip T-score 1.4. IMPRESSION: Normal bone mineral density. Pharmacologic treatment recommendations * No uniform recommendation applies to all patients. Management plans mustbe individualized. * Consider initiating pharmacologic treatment in postmenopausal women andmen >= 50 years of age who have the following: Primary fracture prevention: * T-score <= - 2.5 at the femoral neck, total hip, lumbar spine, 33%radius (some uncertainty with existing data) by DXA. * Low bone mass (osteopenia: T-score between - 1.0 and - 2.5) at thefemoral neck or total hip by DXA with a 10-year hip fracture risk >= 3% or o56-nioe major osteoporosis-related fracture risk >= 20% (i.e., clinical vertebral,hip, forearm, or proximal humerus) based on the [place]-adapted FRAXregisteredmodel. Secondary fracture prevention: * Fracture of the hip or vertebra regardless of BMD [4, 5]. * Fracture of proximal humerus, pelvis, or distal forearm in persons withlow bone mass (osteopenia: T-score between - 1.0 and - 2.5). The decision totreat should be individualized in persons with a fracture of the proximalhumerus, pelvis, or distal forearm who do not have osteopenia or low BMD [12,13]. Radha MS, Karoline SL, Vale KL, Chanda EM, Kolton KG, AJ,[place] ES. The clinician's guide to prevention and treatment of osteoporosis.Osteoporos Int. 2021;33(10):7121-4621. doi: 10.1007/q96222-402-63274-g. Ep. Erratum in: Osteoporos Int. 2021Mar 19;: PMID: 17539990; PMCID: [id number]. Authorizing ProviderResult TypeResult StatusDarling Gabriel MOTOR TEACHER - CNPIMG DEXA ORDERABLESFinal Result * Albumin/Creatinine Ratio, Urine (05/13/2025 7:57 AM EDT)ComponentValueRef RangeTest MethodAnalysis TimePerformed AtPathologist SignatureAlbumin Urine<12 0 - 20 mg/L05/13/2025 7:57 AM EDTMERCY LABORATORIESCreatinine, Ur106.028.0 - 217.0 mg/dL05/13/2025 7:57 AM EDTMERCY LABORATORIESComment:Reference range defined for 1st morning urineMicroalb/Container Crane Operator. RatioCan not be calculated0.0 - 25.0 mcg/mg creat05/13/2025 7:57 AM EDTMERCY LABORATORIESSpecimen (Source) Anatomical Location / LateralityCollection Method / VolumeCollection Time Received TimeUrine (Urine)05/13/2025 7:57 AM EDT05/13/2025 7:59 AM EDT Narrative Authorizing ProviderResult TypeResult StatusCody GUNDERSON ORDERABLES Final ResultPerforming OrganizationAddressCity/State/ZIP CodePhone Number [facility] [address] [place] [address], [facility] [phone] [facility]ENTEREda[facility] [place] [place] [address], [facility] [phone] * TSH reflex to FT4 (05/13/2025 7:56 AM EDT)ComponentValueRef RangeTest Method Analysis TimePerformed AtPathologist SignatureTSH1.140.27 - 4.20 uIU/mL 05/13/2025 7:56 AM EDTMOHIOHEALTH [facility] ABBI LABSpecimen (Source)Anatomical Location / LateralityCollection Method / VolumeCollection TimeReceived Time BloodBLOOD SPECIMEN / Btyecil6105/13/2025 7:56 AM EDT05/13/2025 7:58 AM EDT Narrative Authorizing ProviderResult TypeResult StatusSeton Medical Center DOCHEMISTRY ORDERABLESFinal ResultPerforming OrganizationAddressCity/State/ZIP CodePhone Number [facility] [address] [place] [address], [facility] [phone] * Estrogens, Fractionated (05/13/2025 7:56 AM EDT)ComponentValueRef RangeTest MethodAnalysis TimePerformed AtPathologist SignatureEstradiol6.7pg/mL 05/13/2025 7:56 AM EDTARUP LABORATORYComment: (NOTE) REFERENCE INTERVAL: Estradiol by Tool Salvage Worker For a complete set of all established reference intervals, refer to [employer]Tests/Pub/[id number]. This test was developed and its performance characteristics determined by [employer]. It has not been cleared or approved by the US Food and Drug Administration. This test was performed in a CLIA certified laboratory and is intended for clinical purposes. Kaqmgis99.8pg/mL05/13/2025 7:56 AM EDTARUP LABORATORYComment: (NOTE) INTERPRETIVE INFORMATION: Estrone by Tool Salvage Worker For a complete set of all established reference intervals, refer to [employer]Tests/Pub/[id number]. This test was developed and its performance characteristics determined by [employer]. It has not been cleared or approved by the US Food and Drug Administration. This test was performed in a CLIA certified laboratory and is intended for clinical purposes. Estrogen Total43.5pg/mL05/13/2025 7:56 AM EDTARUP LABORATORYComment: (NOTE) Reference interval of estrogens ? (pg/mL) ?? Estrone ?Estradiol ?Total Estrogens Early follicular <150.0 30.0-100.0 30.0-250.0 Late follicular ? 100.0-250.0 ??100.0-400.0 ??200.0-650.0 Luteal <200.0 50.0-150.0 50.0-350.0 Post-menopausal ? 3.0-32.0 ? 2.0-21.0 ? 5.0-52.0 REFERENCE INTERVAL: Estrogens Total Calculation For a complete set of all established reference intervals, refer to [employer]/Tests/Pub/[id number]. Performed By: [employer] [address] [place] [address] Nodulizer: Samuel Mallory MD, PhD CLIA Number: [id number] Specimen (Source)Anatomical Location / LateralityCollection Method / Volume Collection TimeReceived TimeBLOOD SPECIMEN / Yzbkcza7705/13/2025 7:56 AM EDT 05/13/2025 7:58 AM EDT Narrative Authorizing ProviderResult TypeResult StatusBrady Natalee Maya DOCHEMISTRY ORDERABLESFinal ResultPerforming OrganizationAddressCity/State/ZIP CodePhone Number [facility] [address] [place] [address], [facility] [phone] [facility] [address] [place] [address], [facility] [phone] * Vitamin D 25 Hydroxy (05/13/2025 7:56 AM EDT)ComponentValueRef RangeTest MethodAnalysis TimePerformed AtPathologist SignatureVit D, 25-Axsccwj27.630.0 - 100.0 ng/mL05/13/2025 7:56 AM EDTMERCY LABORATORIESComment: Reference Range: Vitamin D status ? Range Deficiency <20 ng/mL Mild Deficiency ? 20-30 ng/mL Sufficiency ?30-100 ng/mL Toxicity >100 ng/mL Specimen (Source)Anatomical Location / LateralityCollection Method / Volume Collection TimeReceived TimeBloodBLOOD SPECIMEN / Socskuq4205/13/2025 7:56 AM EDT 05/13/2025 7:58 AM EDT Narrative Authorizing ProviderResult TypeResult StatusKpc Promise Of Vicksburglizbet S Francesco DOCHEMISTRY ORDERABLESFinal ResultPerforming OrganizationAddressty/State/ZIP CodePhone Number [facility] [address] [place] [phone], [facility] [phone] [place] [address], [facility] [phone] * DHEA-Sulfate (05/13/2025 7:56 AM EDT)ComponentValueRef RangeTest Method Analysis TimePerformed AtPathologist SignatureDHEAS (DHEA Sulfate)162.035.4 - 256 ug/dL05/13/2025 7:56 AM EDTMERCY LABORATORIESSpecimen (Source)Anatomical Location / LateralityCollection Method / VolumeCollection TimeReceived Time BLOOD SPECIMEN / Axcrjnf2105/13/2025 7:56 AM EDT05/13/2025 7:58 AM EDT Narrative Authorizing ProviderResult TypeResult [facility] DOCHEMISTRY ORDERABLESFinal ResultPerforming OrganizationAddressCity/State/ZIP CodePhone Number [facility] [address] [place] [phone], [facility] [phone] [place] [address], [facility] [phone] * Testosterone, free, total (05/13/2025 7:56 AM EDT)ComponentValueRef RangeTest MethodAnalysis TimePerformed AtPathologist NpvpzocxzEjmadnanqrbx208 - 41 ng/dL 05/13/2025 7:56 AM EDTMERCY LABORATORIESSex Hormone Ijocaii16966 - 125 nmol/L 05/13/2025 7:56 AM EDTMERCY LABORATORIESTestosterone, Free2.11.1 - 5.8 pg/mL 05/13/2025 7:56 AM EDTMERCY LABORATORIESComment: Post-menopausal range: 0.6-3.8 The concentration of free testosterone is derived from a mathematical expression based on the constant for the binding of testosterone to albumin and/or sex hormone binding globulin. ? Specimen (Source)Anatomical Location / LateralityCollection Method / Volume Collection TimeReceived TimeBloodBLOOD SPECIMEN / Kufogcz7405/13/2025 7:56 AM EDT 05/13/2025 7:58 AM EDT Narrative Authorizing ProviderResult TypeResult [facility] DOCHEMISTRY ORDERABLESFinal ResultPerforming OrganizationAddressCity/State/ZIP CodePhone Number [facility] [address] [place] [address], [facility] [phone] [employer] [address] [place] [address], [facility] [phone] * (ABNORMAL) Cortisol Total (05/13/2025 7:56 AM EDT)ComponentValueRef RangeTest MethodAnalysis TimePerformed AtPathologist IsikuwzjtQotvfmoj43.7(H)2.5 - 19.5 ug/dL05/13/2025 7:56 AM EDTMERCY LABORATORIESComment: ? Cortisol Reference Range: ?AM ? 6.0-18.4 ?PM ? 2.7-10.5 Cortisol Collection FfvbHPPCZ09/21/2025 7:56 AM [facility] Specimen (Source)Anatomical Location / LateralityCollection Method / Volume Collection TimeReceived TimeBloodBLOOD SPECIMEN / Cxuswbi5505/13/2025 7:56 AM EDT 05/13/2025 7:58 AM EDT Narrative Authorizing ProviderResult TypeResult [facility] DOCHEMISTRY ORDERABLESFinal ResultPerforming OrganizationAddressCity/State/ZIP CodePhone Number [facility] [address] [place] [address], [facility] [phone] [employer] [address] [place] [address], [facility] [phone] * (ABNORMAL) Lipid, Fasting (11/10/2024 8:26 AM EDT)ComponentValueRef RangeTest MethodAnalysis TimePerformed AtPathologist SignatureCholesterol, Ytotcaz824(H) 0 - 199 mg/dL11/10/2024 8:26 AM EDTMERCY LABORATORIESComment: Cholesterol Guidelines: <200 Desirable 200-240 ??Borderline >240 Undesirable HDL53>40 mg/dL11/10/2024 8:26 AM EDTMERCY LABORATORIESComment: HDL Guidelines: <40 Undesirable 40-59 ?Borderline >59 Desirable LDL Hurbftpwoad489(H)0 - 100 mg/dL11/10/2024 8:26 AM EDTMAvazu IncY LABORATORIES Comment: LDL Guidelines: <100 Desirable 100-129 ?? Near to/above Desirable 130-159 ?? Borderline >159 Undesirable Direct (measured) LDL and calculated LDL are not interchangeable tests. Chol/HDL Ratio3.803 8:26 AM EDTMERCY LABORATORIESTriglyceride, Fasting 1040 - 149 mg/dL11/10/2024 8:26 AM EDTMERCY LABORATORIESComment: Triglyceride Guidelines: <150 Desirable 150-199 ??Borderline 200-499 ??High >499 Very high Based on AHA Guidelines for fasting triglyceride, May 2012. YENH763 - 30 mg/dL11/10/2024 8:26 AM EDTMAvazu IncY LABORATORIESSpecimen (Source) Anatomical Location / LateralityCollection Method / VolumeCollection Time Received TimeBloodBLOOD SPECIMEN / Mlwycpy1511/10/2024 8:26 AM EDT11/10/2024 8:27 AM EDT Narrative Authorizing ProviderResult TypeResult StatusGregselect medical specialty hospital [facility], [facility] S Francesco DOCHEMISTRY ORDERABLESFinal ResultPerforming OrganizationAddressCity/State/ZIP CodePhone Number [facility] [address] [place] [address], [facility] [phone] [employer] [address] [place] [address], [facility] [phone] * (ABNORMAL) Comprehensive Metabolic Panel (11/10/2024 8:26 AM EDT)Component ValueRef RangeTest MethodAnalysis TimePerformed AtPathologist SignatureSodium 576771 - 144 mmol/L11/10/2024 8:26 AM [employer] LABPotassium4.1 3.7 - 5.3 mmol/L11/10/2024 8:26 AM [employer] HNDHcfnuvwv87511 - 107 mmol/L11/10/2024 8:26 AM [employer] OWCRL57465 - 31 mmol/L 11/10/2024 8:26 AM [employer] LABAnion Gap6(L)9 - 17 mmol/L 11/10/2024 8:26 AM [employer] FVOHbkcgui6189 - 99 mg/dL11/10/2024 8:26 AM [facility] EPYDJO714 - 20 mg/dL11/10/2024 8:26 AM [employer] [facility] [facility] LABCreatinine0.80.5 - 0.9 mg/dL11/10/2024 8:26 AM [facility] ABBI LABEst, Glom Filt Rate89>60 mL/min/1.46d29311/10/2024 8:26 AM [employer] LABComment: ? These results are not intended for use in patients <18 years of age. ? eGFR results are calculated without a race factor using the 2020 CKD-EPI equation. Careful clinical correlation is recommended, particularly when comparing to results calculated using previous equations. The CKD-EPI equation is less accurate in patients with extremes of muscle mass, extra-renal metabolism of creatine, excessive creatine ingestion, or following therapy that affects renal tubular secretion. Calcium8.98.6 - 10.4 mg/dL11/10/2024 8:26 AM [employer] LABTotal Protein6.96.4 - 8.3 g/dL11/10/2024 8:26 AM [facility] LABAlbumin3.9 3.5 - 5.2 g/dL11/10/2024 8:26 AM [facility] LABAlbumin/Globulin Ratio1.31.0 - 2.503 8:26 AM [employer] LABTotal Bilirubin 0.40.3 - 1.2 mg/dL11/10/2024 8:26 AM [employer] LABAlkaline Wjhmvdkenft8899 - 104 U/L11/10/2024 8:26 AM [facility] XEGVRP202 - 33 U/L11/10/2024 8:26 AM [facility] TSLXIV48<32 U/L11/10/2024 8:26 AM [employer] [employer] LABSpecimen (Source)Anatomical Location / Laterality Collection Method / VolumeCollection TimeReceived TimeBloodBLOOD SPECIMEN / Ynuamzx1811/10/2024 8:26 AM EDT11/10/2024 8:27 AM EDT Narrative Authorizing ProviderResult TypeResult StatusGregory S Francesco DOCHEMISTRY ORDERABLESFinal ResultPerforming OrganizationAddressCity/State/ZIP CodePhone Number [facility] [address] [place] [address], [facility] [phone] * POCT glycosylated hemoglobin (Hb A1C) (11/01/2024 4:35 PM EDT)ComponentValue Ref RangeTest MethodAnalysis TimePerformed AtPathologist SignatureHemoglobin A1C5.4%Specimen (Source)Anatomical Location / LateralityCollection Method / VolumeCollection TimeReceived TimeBLOOD SPECIMEN / Djxvidj0011/01/2024 4:35 PM EDT Narrative Authorizing ProviderResult TypeResult StatusCody Maya DOPOINT OF CARE TEST ORDERABLESFinal Result * COLONOSCOPY (05/19/2021 4:58 PM EDT) Narrative Authorizing ProviderResult TypeResult StatusHistorical Provider MDHEALTH MAINTENANCEFinal Result * HPV (04/30/2021 1:03 PM EDT) Impressions Bree Bustillo MA - 04/30/2021 1:03 PM EDT PAP [id number] Component Ref Range & Units 2 yr ago Comments HUMAN PAPILLOMA VIRUS 16+18+31+33+35+39+45+51+52+56+58+59+66+68 DNA: Negative Negative This nucleic acid amplification test detects fourteen high-risk HPV types (16,18,31,33,35,39,45,51,52,56,58,59,66,68) without differentiation. Performed at: [facility] [place] ??[place] [id number] ?MD Soraida Giles Performed at: =G [facility] [address] [facility] ??[place] [id number] ?MD Soraida Giles CYTOLOGY REPORT:FIND:PT:CVX/VAG:DOC:CYTO STAIN Note TESTS ? RESULT ??FLAG ??UNITS ?REF RANGE ??LAB Clinician Provided Cytology Information Source.............[employer]ix No. of containers..01 ThinPrep Vial DIAGNOSIS: ?01 NEGATIVE FOR INTRAEPITHELIAL LESION OR MALIGNANCY. CELLULAR CHANGES ASSOCIATED WITH INFLAMMATION ARE PRESENT. Specimen adequacy: ?01 Satisfactory for evaluation. ??Endocervical and/or squamous metaplastic cells (endocervical component) are present. Performed by: ? 01 Karina Milligan, Field Support Engineer (ASCP) . ? 01 Note: ? Note ?01 The Pap smear is a screening test designed to aid in the detection of premalignant and malignant conditions of the uterine cervix. ??It is not a diagnostic procedure and should not be used as the sole means of detecting cervical cancer. ??Both false-positive and false-negative reports do occur. Test Methodology: ? Note ?01 This liquid based ThinPrep(R) pap test was screened with the use of an image guided system. FLAG LEGEND: L-Low Normal,H-High Normal,LL-Alert Low,HH-Alert High <-Panic Low,>-Panic High,A-Abnormal,AA-Critical Abnormal Performed at: 01 WB ?[facility] [address] ??[id number] Tisha Quigley MD, GYNECOLOGICAL BODY SITE ENDOCERVIX COLLECTION TECHNIQUE BRUSH-SPATULA PERFORMING LAB: see note [facility] unless otherwise specified [address] [place] [address] Resulting Agency [facility] Specimen Collected: 04/30/21 Performed by: [facility] Last Resulted: 05/05/21 Received From: [facility] Result Received: 08/24/23 11:46 View Encounter ?? Narrative Authorizing ProviderResult TypeResult StatusHistorical Provider MDCLERMONT [facility] MAINTENANCEEdited Result - Final from Last 3 Months or Most Recently Relevant to Health Maintenance Insurance Care Teams Team MemberRelationshipSpecialtyStart DateEnd Date Cody Maya DO [address] [place], [place] [id number] PCP - GeneralFamily Medicine03/12/23
--- OUTSIDE RECORDS SUMMARY | 2025-07-17 11:03 | XMS_ITS | Clinical Summary ---
Author Organization [facility] Address [address] [place] [address] Care Team Providers Care Orthopedic Podiatrist Name Role Phone Cody Maya MD Primary Care Provider [phone] Allergies Active AllergyReactionsCriticalityNoted IkmrYiksvquiKkbhcnxpdXprxqzre29/11/2023 WwabllwkdtguwYdjfWdk59/09/2024Metformin And NevxmumLcyyNqu34/08/2023Rofecoxib Opfputtj12/16/2015Sumatriptan-Naproxen ZtunpuCgmwpigm94/16/2015 Other Reaction(s): swelling and rash Wound Dressing XnitlpbeEmlyJot27/09/2024 Medications MedicationSigDispense QuantityRefillsLast FilledStart DateEnd DateStatus acyclovir (Zovirax) 200 MG capsule Take 2 capsules by mouth in the morning and 2 capsules in the evening and 2 capsules before bedtime.04/27/2023ctive cholecalciferol (D3-5) 5,000 Units tablet Take 5,000 Units by mouthActive cloNIDine (Catapres) 0.1 MG tablet 02/03/2023ctive empagliflozin (Jardiance) 10 MG Take 1 tablet by mouth DailyActive meloxicam (Mobic) 15 MG tablet Take 15 mg by mouth DailyActive Darlyn 1.5/30 1.5-30 MG-MCG tablet tablet Take 1 tablet by mouth Daily12/06/2022ctive pantoprazole (ProtoNix) 40 MG EC tablet Take 1 tablet by mouth Daily04/27/2023ctive traZODone (Desyrel) 50 MG tablet Take 50 mg by mouth02/03/2023ctive TURMERIC PO Take 1 capsule by mouth in the morning and 1 capsule before bedtime.Active phentermine (Adipex-P) 37.5 MG tablet Take 37.5 mg by mouth in the morning. Take before meals.01/26/2024ctive dehydroepiandrosterone (DHEA) 10 MG tablet Take 10 mg by mouth Daily02/23/2024ctive progesterone 100 MG capsule Take 1 capsule by mouth Daily02/23/2024ctive Active Problems ProblemNoted DateDiagnosed DateCalcaneal spur of left foot07/04/2025losed nondisplaced fracture of base of second metacarpal bone of right hand07/04/2025 Contusion of hand07/04/2025Diabetes pomrshdd59/12/2025Equinus deformity of foot 07/04/20253102Hhnalob07/12/2025Plantar fascial raytwakzjdho48/12/2025Primary localized osteoarthrosis of shoulder vlhftd5807/04/2025Daytime somnolence 12/09/2023Obstructive sleep apnea /18/2024Migraine with aura and without status migrainosus, not oigoglnpzxo93/16/2015White matter abnormality on MRI of brain08/07/2015 Overview (07/04/2025): Most likely due to underlying migraine history Pain in joint, lower leg07/01/2007 Encounters DateTypeDepartmentCare JaiuYimlfhofolk74/18/2025 1:10 PM ESTOffice Visit [facility] [address] [facility] [address] [place] [address] Flaquita Barajas MD Tongue mass (Primary Dx)07/10/2025amboo flowsheet [facility] [address] [facility] [address] [place] [address] Flaquita Barajas MD 07/10/20256979Zbeufo00/02/2025linisync Result Encounter [facility] Department Unsolicited Darling Gabriel NP 05/24/2025linisync Result Encounter [facility] External [facility] Unsolicited Darling Gabriel NP 05/23/2025bstract [facility] [address] [place] [address] Pillo Urbano DO 05/08/2025Telephone [facility] [address] [place] [phone] Veronica Roblero MA 05/07/2025 11:00 AM EDTOffice Visit [facility] [address] [place] [address] Bree Higgins, PA Vaginal irritation; Vaginal kjlqtxf7405/07/2025amboo flowsheet [facility] [address] [place] [address] Bree Higgins, PA 05/07/2025Travelfrom Last 3 Months Immunizations ImmunizationAdministration DatesNext DueInfluenza, injectable, quadrivalent, preservative free08/02/2022,06/20/2020 Family History Medical HistoryRelationNameCommentsDiabetesFatherLarryMigrainesMaternal GrandfatherCharlesOsteoarthritisMotherMarcellaDiabetesOtherCancerPaternal GrandmotherLucilleRelationNameStatusCommentsFatherLarryMaternal Grandfather CharlesAliveMotherMarcellaAliveOtherPaternal GrandmotherLucille Social History Tobacco UseTypesPacks/DayYears UsedDateSmoking Tobacco: NeverSmokeless Tobacco: NeverAlcohol UseStandard Drinks/WeekCommentsNot Currently1 (1 standard drink = 0.6 oz pure alcohol)Maybe once a weekCommentsUnknownSex and Gender InformationValueDate RecordedSex Assigned at BirthNot on fileLegal SexFemale 11/04/2022 7:16 PM EDTGender IdentityNot on fileSexual OrientationNot on file Last Filed Vital Signs Vital SignReadingTime TakenCommentsBlood Gtyrqhxy556/6807/10/2025 1:02 PM EST Vwglv606907/10/2025 1:02 PM AXLKkgdhltdbmw17.2 ??C (97.1 ??F)02/29/2024 2:57 PM EDTRespiratory Rate--Oxygen Saturation--Inhaled Oxygen Concentration--Ddwwcr49.9 kg (218 lb)07/10/2025 1:02 PM RBGJvrwjv320.2 cm (5' 7 )07/10/2025 1:02 PM EST Body Mass Index34.14109/09/2024 1:02 PM EST Plan of Treatment DateTypeDepartmentCare Team (Latest Contact Info)Mvjrrpclsim96/12/2025 1:30 PM ESTOffice Visit [facility] [address] [place] [address] Flaquita Barajas MD [address] [facility] [address] [place] [address] Procedures Procedure NamePriorityDate/TimeAssociated DiagnosisCommentsDEXA BONE DENSITY AXIAL PFCBHJAV99/02/2025 1:01 PM EDT R[facility]ET[facility] DIGITAL SCREEN POZOJQVVO17/02/2025 8:06 AM EDT RECURRENT VAGINITIS (HTRX)Ynepbof6205/07/2025 11:52 AM EDT from Last 3 Months Results * DEXA BONE DENSITY AXIAL SKELETON (05/24/2025 1:01 PM EDT)Anatomical Region LateralityModalityOtherSpecimen (Source)Anatomical Location / Laterality Collection Method / VolumeCollection TimeReceived Time05/24/2025 1:01 PM EDT Narrative 05/24/2025 1:05 PM EDT EXAM: DEXA BONE DENSITY AXIAL SKELETON HISTORY: Postmenopausal status. COMPARISON: None. TECHNIQUE: lifeaction games Scanner 88753. FINDINGS: T-score lumbar spine normal at 2.7. [...] prevention and treatment of osteoporosis. Osteoporos Int. 2021;33(10):2660-2665. doi: 10.1007/v46359-931-50466-i. Epub 2021Dec 18. Erratum in: Osteoporos Int. 2021Mar 19;: PMID: 24079165; PMCID: [id number]. Interpreted by: Julius Zaragoza Jr., MD Signed by: Julius Zaragoza Jr., MD 05/24/25 Final result Procedure Note Radiology, Radiologist, - 05/24/2025 EXAM: DEXA BONE DENSITY AXIAL SKELETON HISTORY: Postmenopausal status. COMPARISON: None. TECHNIQUE: lifeaction games Scanner 30976. FINDINGS: T-score lumbar spine normal at 2.7. [...] 10-year hip fracture risk >= 3% or g76-tpfr major osteoporosis-related fracture risk >= 20% (i.e., [...] to prevention and treatment of osteoporosis.Osteoporos Int. 2021;33(10):5987-5141. doi: 10.1007/m40554-562-86206-e. Ep. Erratum in: Osteoporos Int. 2021Mar 19;: PMID: 70419350; PMCID: QVW6431939. Interpreted by: Julius Zaragoza Jr., MD Signed by: Julius Zaragoza Jr., MD 05/24/25 Final result Authorizing ProviderResult TypeResult StatusDarling Gabriel NPCLINISYNC IMAGING Final Result * [facility] WILNER DIGITAL SCREEN BILATERAL (05/24/2025 8:06 AM EDT)Anatomical Region LateralityModalityOtherSpecimen (Source)Anatomical Location / Laterality Collection Method / VolumeCollection TimeReceived Time05/24/2025 8:06 AM EDT Narrative 05/24/2025 8:10 AM EDT EXAM: [facility] WIL[facility] DIGITAL SCREEN BILATERAL HISTORY: Encounter for [...] or cluster of suspicious microcalcifications is seen. IMPRESSION: No evidence of malignant breast disease. Annual [...] quality standards act) requirements and the ACR ([employer] [employer]) recommendations, a letter has [...] Automated Breast Ultrasound (ABUS) in accordance with [place] law HB 371. -We appreciate being involved in this patient's care. Performing Facility: [facility] [address] [place] [address] Interpreted by: Susy Hills MD Signed by: Susy Hills MD 05/24/25 Final result Procedure Note Radiology, Radiologist, - 05/24/2025 EXAM: RENETTA WILNER DIGITAL SCREEN BILATERAL HISTORY: Encounter for screening mammogram for malignant neoplasm ofbreast. TC score is 9.3% COMPARISON: 03/28/2024 12/10/2022 TECHNIQUE: Bilateral full-field digital MLO and CC mammographic views were obtained with 3-D breast tomosynthesis. CAD was utilized FINDINGS: BREAST DENSITY CODE: The breasts are heterogeneously dense, which mayobscure small masses. No breast mass, area of architectural distortion, or cluster of suspicious microcalcifications is seen. IMPRESSION: No evidence of malignant breast disease. Annual screening mammography is recommended. BIRADS: 1 - Negative, no evidence of malignancy. Normal interval followupin 12 months. OVERALL ASSESSMENT- NEGATIVE A letter of notification will be sent to the patient regarding theresults. Guidelines for Early Breast Cancer Detection: -Annual mammography screening begins at the age of 40 and continues for aslong as the patient is in good health. -Women at increased risk (e.g., family history, genetic tendency, pastbreast cancer) should discuss with their doctor about the benefits andlimitations of starting mammography screening earlier, having additional test (e.g.,breast ultrasound, breast MRI) or having more frequent exams. Screening breastMRI is recommended for women with a strong family history of breast or ovariancancer and women who were treated for Hodgkin's [...] is present. Approximately 20% of cancers are notidentified by screening mammography. False-negative results occur when mammograms appear normal even though breast cancer is present. False-positive reportsaverage 6-10%. -As per MQSA (mammography quality standards act) requirements and the ACR ([employer]) recommendations, a letter has been sent tothe referring physician and/or to the patient. -Disclaimer: Please note that mammogram is not 100% accurate in diagnosisof breast cancer. A routine breast exam is recommended to correlate with mammographic findings.- -Any palpable abnormality must be assessed clinically. If the patient hasa new palpable abnormality, then a diagnostic mammogram and/or breast ultrasoundis indicated if clinically appropriate. - Given the density of the tissue, if breast tissue is Heterogeneously or Extremely Dense, recommend additional screening with bilateral MRI orAutomated Breast Ultrasound (ABUS) in accordance with [place] law HB 371. -We appreciate being involved in this patient's care. Performing Facility: [place] [address] Interpreted by: Susy Hills MD Signed by: Susy Hills MD 05/24/25 Final result Authorizing ProviderResult TypeResult StatusKristina Harvey NPCLINISYNC IMAGING Final Result * (ABNORMAL) RECURRENT VAGINITIS (HTRX) (05/07/2025 11:52 AM EDT)ComponentValue Ref RangeTest MethodAnalysis TimePerformed AtPathologist SignatureATOPOBIUM ANTSKXC770.961 - 24.689 ppm05/08/2025 6:15 AM EDTHealthTrackRx at [facility] ATOPOBIUM VAGINAENot Rqwijklr24.961 - 24.689 ppm05/08/2025 6:15 AM EDT [facility] HospitalBVAB 2,3 (BACTERIAL VAGINOSIS ASSOCIATED BACTERIA 2, 3); MOBILUNCUS YNA410.961 - 24.689 ppm05/08/2025 6:15 AM EDTHealthTrackRx at [facility]BV[facility] 2,3 (BACTERIAL VAGINOSIS ASSOCIATED BACTERIA 2, 3); MOBILUNCUS SPP Not Zbcpfzjm82.961 - 24.689 ppm05/08/2025 6:15 AM EDTHealthTrackRx at [facility] SIRI ALBICANS, PARAPSILOSIS, BJUHSWRPJS846.000 - 30.347 ppm05/08/2025 6:15 AM EDTHealthTrackRx at [facility] HospitalCANDIDA ALBICANS, PARAPSILOSIS, TROPICALISNot Bofsvedc16.000 - 30.347 ppm05/08/2025 6:15 AM EDTHealthTrackRx at [facility] SIRI KQMTCYEI115.000 - 31.618 ppm05/08/2025 6:15 AM EDTHealthTrackRx at [facility] HospitalCANDIDA GLABRATANot Mxpjjaki77.000 - 31.618 ppm05/08/2025 6:15 AM EDT [facility] HospitalCANDIDA QTRWWH337.000 - 30.873 ppm05/08/2025 6:15 AM EDTHealthTrackRx at [facility] HospitalCANDIDA KRUSEINot Ehpdfbgs30.000 - 30.873 ppm 05/08/2025 6:15 AM EDTHealthTrackRx at [facility] HospitalCHLAMYDIA LANLEMRXGPA200.000 - 31.586 ppm05/08/2025 6:15 AM EDTHealthTrackRx at [facility] HospitalCHLAMYDIA TRACHOMATIS Not Gsypzjmf10.000 - 31.586 ppm05/08/2025 6:15 AM EDTHealthTrackRx at [facility] GARDNERELLA HBXCFOMKQ534.961 - 24.689 ppm05/08/2025 6:15 AM EDTHealthTrackRx at [facility] HospitalGARDNERELLA VAGINALISNot Kzxcdnae45.961 - 24.689 ppm05/08/2025 6:15 AM EDTHealthTrackRx at [facility] HospitalHERPES SIMPLEX VIRUS 118.809(A)23.000 - 31.899 ppm05/08/2025 6:15 AM EDTHealthTrackRx at [facility] HospitalHERPES SIMPLEX VIRUS 1 Detected(A)23.000 - 31.899 ppm05/08/2025 6:15 AM EDTHealthTrackRx at [facility] HERPES SIMPLEX VIRUS 2023.000 - 31.675 ppm05/08/2025 6:15 AM EDTHealthTrackRx at [facility] HospitalHERPES SIMPLEX VIRUS 2Not Onwqevzb77.000 - 31.675 ppm05/08/2025 6:15 AM EDTHealthTrackRx at [facility] HospitalMEGASPHAERA (TYPES 1, 2)019.961 - 24.689 ppm 05/08/2025 6:15 AM EDTHealthTrackRx at [facility] HospitalMEGASPHAERA (TYPES 1, 2)Not Hkehndcz87.961 - 24.689 ppm05/08/2025 6:15 AM EDTHealthTrackRx at [facility] NEISSERIA RPAZKZTKWIT232.000 - 32.587 ppm05/08/2025 6:15 AM EDTHealthTrackRx at LabPortNEISSERIA GONORRHOEAENot Xpioebmw85.000 - 32.587 ppm05/08/2025 6:15 AM EDTHealthTrackRx at LabPortTRICHOMONAS ZLAKRAEYJ006.000 - 31.995 ppm 05/08/2025 6:15 AM EDTHealthTrackRx at LabPortTRICHOMONAS VAGINALISNot Gwcytzar21.000 - 31.995 ppm05/08/2025 6:15 AM EDTHealthTrackRx at [facility] MYCOPLASMA PULVAPRKIN295.961 - 24.689 ppm05/08/2025 6:15 AM EDTHealthTrackRx at LabPortMYCOPLASMA GENITALIUMNot Jjtyjnxn06.961 - 24.689 ppm05/08/2025 6:15 AM EDTHealthTrackRx at LabPortSpecimen (Source)Anatomical Location / LateralityCollection Method / VolumeCollection TimeReceived TimeTissue 05/07/2025 11:52 AM EDT05/08/2025 1:23 AM EDT Narrative Authorizing ProviderResult TypeResult StatusAmy Ronaldo CARCAMO BLOOD ORDERABLES Final ResultPerforming OrganizationAddressCity/State/ZIP CodePhone Number [facility] [address] [place] [address] from Last 3 Months Insurance Care Teams Team MemberRelationshipSpecialtyStart DateEnd Date Cody Maya MD [address] [place] [address] PCP - GeneralGeneral Practice05/03/23
== END 2025-07-17 11:01 | disposition home or self-care (01) ==
LOC: PST 11:00
PROVIDERS: PCP Family Medicine; Visit Provider Otolaryngology
DX: Z01.818 Encounter for other preprocedural examination (principal); K14.8 Other diseases of tongue

== ENCOUNTER 2025-08-09 09:21 | Day surgery (SDC) | payer BC, SELFPAY ==
--- NOTE | 2025-07-17 09:52 | PC.NURSE ---
Patient is a full code and her emergency contact is her daughter Chidi Ruiz.
--- NOTE | 2025-08-09 | OP_ITS ---
OPERATION DATE: 08/09/2025 SURGEON: Flaquita Barajas M.D. PREOPERATIVE DIAGNOSIS: Right anterolateral tongue lesion. POSTOPERATIVE DIAGNOSIS: Right anterolateral tongue lesion. PROCEDURE: Removal of right anterolateral tongue lesion with primary closure. ANESTHESIA: Lidocaine 1% with 1:100,000 epinephrine. COMPLICATIONS: None. FINDINGS: 3 mm sessile lesion of the right anterolateral tongue. INDICATIONS: This 49-year-old woman presented with the above lesion, which was causing discomfort and frequently bitten. PROCEDURE: Patient identified in the holding area and taken back to the OR, where she was placed in the supine position. Lidocaine 1% with 1:100,000 epinephrine was injected around the base of the lesion. While awaiting hemostasis, the face was draped in a sterile fashion. Then, the right anterolateral tongue was prepped with Betadine. The lesion was grasped with a forcep and, using a sharp, curved scissor, the lesion was excised. A single 5-0 Vicryl suture was placed to close the incision site, and the patient was discharged home in good condition. KIM
--- OUTSIDE RECORDS SUMMARY | 2025-08-09 09:25 | XMS_ITS | Clinical Summary ---
Author Organization [facility] Address [address] [place] [address] Care Team Providers Care Teacher Of The Visually Impaired Name Role Phone Cody Maya MD Primary Care Provider [phone] Allergies Active AllergyReactionsCriticalityNoted VmbyUoumohvgQrwhcbkofYsqqgpgo00/11/2023 UgjwthddwuisbFsedOmh32/09/2024Metformin And DmkslvnAsuoYuw34/08/2023Rofecoxib Mmretqyv82/16/2015Sumatriptan-Naproxen DassjbJmwaedie54/16/2015 Other Reaction(s): swelling and rash Wound Dressing BnqrjflfPuikKym83/09/2024 Medications MedicationSigDispense QuantityRefillsLast FilledStart DateEnd DateStatus acyclovir [...] bone of right hand07/04/2025 Contusion of hand07/04/2025Diabetes fitinsze89/12/2025Equinus deformity of foot 07/04/20255601Azgtofg89/12/2025Plantar fascial xtorpshabaun41/12/2025Primary localized osteoarthrosis of shoulder dsfymw6007/04/2025Daytime somnolence 12/09/2023Obstructive sleep apnea tvucdgmy33/18/2024Migraine with aura and without status migrainosus, not mdyekhrdksf39/16/2015White matter abnormality on MRI of brain08/07/2015 Overview (07/04/2025): Most likely due to underlying migraine history Pain in joint, lower leg07/01/2007 Encounters DateTypeDepartmentCare OqmmDxygmiyxeyq30/01/2025Telephone [facility] [address] [facility] [address] [place] [id number] Mely Claudio MA 07/10/2025 1:10 PM ESTOffice Visit [facility] [place] [facility] [address] [facility] [address] [place] [phone] Flaquita Barajas MD Tongue mass (Primary Dx)07/10/2025amboo flowsheet [facility] [address] [facility] [address] [place] [phone] Flaquita Barajas MD 07/10/20255943Cfusik79/02/2025Clinisync Result Encounter [facility] External Department Unsolicited Darling Gabriel NP 5Clinisync Result Encounter [facility] External Department Unsolicited Darling Gabriel NP 5Abstract [facility] [address] [place] [address] [place] [address] Pillo rUbano, from Last 3 Months Immunizations ImmunizationAdministration DatesNext DueInfluenza, [...] Last Filed Vital Signs Vital SignReadingTime TakenCommentsBlood Ecnnkqda348/6811 1:02 PM EST Asjsd695107/10/2025 1:02 PM SBPMtdbxblajsh47.2 ??C (97.1 ??F)02/29/2024 2:57 PM EDTRespiratory Rate--Oxygen Saturation--Inhaled Oxygen Concentration--Uqcrvh36.9 kg (218 lb)07/10/2025 1:02 PM HGPBhotxt576.2 cm (5' 7 )07/10/2025 1:02 PM EST Body Mass Index34.14109/09/2024 1:02 PM EST Plan of Treatment DateTypeDepartmentCare Team (Latest Contact Info)Botghprwrhl39/29/2025 3:20 PM ESTOffice Visit [facility] [address] [facility] [address] [place] [address] Flaquita Barajas MD 112 [facility] [address] [place] [address] Procedures Procedure NamePriorityDate/TimeAssociated DiagnosisCommentsDEXA BONE DENSITY AXIAL BLELVJYR02/02/2025 1:01 PM EDT [facility] DIGITAL SCREEN IYPAADMYV18/02/2025 8:06 AM EDT from Last 3 Months Results * DEXA BONE DENSITY AXIAL SKELETON (05/24/2025 1:01 PM EDT)Anatomical Region LateralityModalityOtherSpecimen (Source)Anatomical Location / Laterality Collection Method / VolumeCollection TimeReceived Time05/24/2025 1:01 PM EDT Narrative 05/24/2025 1:05 PM EDT EXAM: DEXA BONE DENSITY AXIAL SKELETON HISTORY: Postmenopausal status. COMPARISON: None. TECHNIQUE: WeDidIt Scanner [id number]. FINDINGS: T-score lumbar spine normal at 2.7. [...] prevention and treatment of osteoporosis. Osteoporos Int. 2021;3310):1843-3635. doi: 10.1007/o85222-167-05893-b. Epub 2021Dec 18. Erratum in: Osteoporos Int. 2021Mar 19;: PMID: [id number]; PMCID: [id number]. Interpreted by: Julius Zaragoza Jr., MD Signed by: Julius Zaragoza Jr., MD 05/24/25 Final result Procedure Note Radiology, Radiologist, MD - 05/24/2025 EXAM: DEXA BONE DENSITY AXIAL SKELETON HISTORY: Postmenopausal status. COMPARISON: None. TECHNIQUE: WeDidIt Scanner [id number]. FINDINGS: T-score lumbar spine normal at 2.7. [...] 10-year hip fracture risk >= 3% or l22-opvu major osteoporosis-related fracture risk >= 20% (i.e., [...] to prevention and treatment of osteoporosis.Osteoporos Int. 2021;33(10):4684-9222. doi: 10.1007/[id number]-c. Epub . Erratum in: Osteoporos Int. 2021Mar 19;: PMID: [id number]; PMCID: [id number]. Interpreted by: Julius Zaragoza Jr., MD Signed by: Julius Zaragoza Jr., MD 05/24/25 Final result Authorizing ProviderResult TypeResult StatusKrkenyon Gabriel NPCLINISYNC IMAGING Final Result * [facility] DIGITAL SCREEN BILATERAL (05/24/2025 8:06 AM EDT)Anatomical Region LateralityModalityOtherSpecimen (Source)Anatomical Location / Laterality Collection Method / VolumeCollection TimeReceived Time05/24/2025 8:06 AM EDT Narrative 05/24/2025 8:10 AM EDT EXAM: R[facility] DIGITAL SCREEN [...] quality standards act) requirements and the ACR ([place] [employer]) recommendations, a letter has [...] Automated Breast Ultrasound (ABUS) in accordance with [place] law HB 371. -We appreciate being involved in this patient's care. Performing Facility: [place] [address] Interpreted by: Susy Hills MD Signed by: Susy Hills MD 05/24/25 Final result Procedure Note Radiology, RadiologistMD - 05/24/2025 EXAM: [facility] DIGITAL SCREEN [...] quality standards act) requirements and the ACR ([place] [employer]) recommendations, a letter has [...] orAutomated Breast Ultrasound (ABUS) in accordance with [place] law HB 371. -We appreciate being involved in this patient's care. Performing Facility: [facility] [address] [address] Interpreted by: Susy Hills MD Signed by: Susy Hills MD 05/24/25 Final result Authorizing ProviderResult TypeResult StatusDarling Gabriel NPCLINISYNC IMAGING Final Result from Last 3 Months Insurance Care Teams Team MemberRelationshipSpecialtyStart DateEnd Date Cody Maya MD [address] [place], [place] [id number] PCP - GeneralGeneral Practice05/03/23
--- OUTSIDE RECORDS SUMMARY | 2025-08-09 09:25 | XMS_ITS | Clinical Summary ---
Author Organization [facility] Address [address] [place] [address] Care Team Providers Care Signal Inspector Name Role Phone Unavailable Primary Care Provider Unavailabl e Allergies Active AllergyReactionsCriticalityNoted DateCommentsSumatriptan-NaproxenSwelling 08/07/20159294AurerzoqhKrvrfkzu40/16/2015 Medications MedicationSigDispense QuantityRefillsLast FilledStart DateEnd DateStatus pantoprazole (PROTONIX) 40 mg grps Take 40 mg by mouth.Active citalopram (CELEXA) 20 mg tablet Take 20 mg by mouth once daily.Active sggkrriypoahf-mdnwnwkhumgniebesk-wlysbpfejnjkl (MIDRIN) 65-100-325 mg per capsule Take 1 capsule by mouth four times daily as needed.Active ASPIRIN/ACETAMINOPHEN/CAFFEINE (EXCEDRIN MIGRAINE ORAL) Take by mouth.Active doxepin capsule 10 mg Take 2 capsules by mouth daily at bedtime. 60 capsule 11110/08/2014ctive Active Problems ProblemNoted DateDiagnosed DateWhite matter abnormality on MRI of brain 08/07/2015 Overview (08/07/2015): Most likely due to underlying migraine history Migraine with aura and without status migrainosus, not hiiwijoqcau13/16/2015Pain in joint, lower leg07/01/2007 Family History Medical HistoryRelationCommentsDiabetesFathertype IIHeadacheOther2 sisters, brother, mom, grandparentsCancerPaternal AuntcervicalCancerPaternal Grandmother cervicalCancerSister 6cervicalCerebral Palsy [Other]Sister 7spina bifidaMultiple SclerosisSister 7uncertain if diagnosis is correct; not on medsSeizuresSister 7 ThyroidSister 8DiabetesSon 3type IRelationStatusCommentsBrotherAliveDaughter 1 AliveDaughter 2AliveFatherAliveMotherAliveOtherPaternal AuntPaternal Grandmother Sister 1AliveSister 2AliveSister 3AliveSister 4AliveSister 5AliveSister 6Sister 7Sister 8Son 1AliveSon 2AliveSon 3 Social History Tobacco UseTypesPacks/DayYears UsedDateSmoking Tobacco: NeverAlcohol UseStandard Drinks/WeekCommentsNo0 (1 standard drink = 0.6 oz pure alcohol)Comments UnknownSex and Gender InformationValueDate RecordedSex Assigned at BirthNot on fileLegal VelTusnfn02/02/2012 8:11 AM ESTGender IdentityNot on fileSexual OrientationNot on fileOccupationIndustryJob Start DateJob End DatePharmacy TechnicianNot on fileNot on fileNot on file Last Filed Vital Signs Vital SignReadingTime TakenCommentsBlood Tosswgci946/5808/07/2015 10:18 AM EST Zoxau990408/07/2015 10:18 AM ESTTemperature--Respiratory Rate--Oxygen Saturation-- Inhaled Oxygen Concentration--Uogjbi55.6 kg (202 lb)08/07/2015 10:18 AM EST Height--Body Mass Index-- Plan of Treatment Health MaintenanceDue DateLast DoneCommentsAnxiety Tyiyavtjh43/05/1992Depression Zdxiaebrl63/05/1992HIV Cafgldvpn84/05/1992Hepatitis C Ymvwpgeig43/05/1992 DTaP,Tdap,Td Vaccine (1 - Tdap)1992Hepatitis B Vaccine (1 of 3 - 19+ 3- dose series)1992Cervical Cancer Ixrvvbydh20/05/1995Mammogram Screening 2013CT Pcduyoqkzxwx95/05/2019Cologuard (FIT-DNA)2018Colonoscopy 2018Colorectal Cancer Eabjpwssl53/05/2019Diabetes Gwtswqayv21/05/2019Fecal Occult Blood2018Lipid Cnfqqccoy33/05/0213Stduwkimcqhqp13/05/2019 Pneumococcal Vaccine: 50+ (1 of 1 - PCV)10/26/2023Shingrix Vaccine (1 of 2) 10/26/2023ovid-19 Vaccine (2024- season)2025Influenza Vaccine (#1) 2025 Insurance MemberSubscriberPlan / Payer (Effective 2022-Present)Name:Ivon Lance Relation to Subscriber:SelfName:Ivon Lance Payer ID:[id number] (NAIC) Group ID:[id number] Type:Medicaid Address: [facility] [address] [id number]
--- OUTSIDE RECORDS SUMMARY | 2025-08-09 09:25 | XMS_ITS | Clinical Summary ---
Author Organization [facility] Address [address], [address] [place] [address] Care Team Providers Care Transport Technician Name Role Phone Francesco Cody Natalee CHATMAN Primary Care Provider [phone] Allergies Active AllergyReactionsCriticalityNoted DateCommentsMetformin And RelatedRashLow 09/30/2022Sumatriptan-Naproxen Xuuqak8310/14/20205233Oiyxlyzqd79/22/2021 Medications MedicationSigDispense QuantityRefillsLast FilledStart DateEnd DateStatus Cholecalciferol (VITAMIN D3) 125 MCG (5000 UT) TABS Take 1 tablet by mouthActive Turmeric 500 MG CAPS Take 1 capsule by mouth 2 times dailyActive pantoprazole (PROTONIX) 40 MG tablet TAKE 1 TABLET BY MOUTH DAILY 90 tablet ctive cloNIDine (CATAPRES) 0.1 MG tablet Indications:Chronic [...] by mouth 3 times daily 30 tablet 5Active acyclovir (ZOVIRAX) 200 MG capsule Take 2 capsules by mouth 3 times daily 30 capsule 5Active acyclovir (ZOVIRAX) 200 MG capsule Take 2 capsules by mouth 3 times daily 30 capsule Discontinued(REORDER) Active Problems ProblemNoted DateDiagnosed DateDaytime gcfyvjlvst93/18/2024Obstructive sleep apnea dtirqknn70/18/2024iabetes mellitus Encounters DateTypeDepartmentCare VopqOzczvgubwnr15/06/2025Refill [facility] [address] [place] [address] Cody Maya, Medication Okcncp7605/23/2025 2:41 PM EDT - 05/25/2025 11:59 PM EDTHospital Encounter [facility] [address] [facility] [facility] [place] [address] Encounter for screening mammogram for malignant neoplasm of breast Discharge Disposition: Home or Self Care05/23/2025 2:41 PM EDT - 05/25/2025 11:59 PM EDTHospital Encounter [facility] Dexa Scan [address] [place] [address] Postmenopausal status Discharge Disposition: Home or Self Care05/13/2025 7:50 AM EDT - 05/13/2025 11:59 PM EDTHospital Encounter [facility] Laboratory [address] [place] [address] Hormone imbalance; Vitamin D deficiency; Type 2 diabetes mellitus without complication, without long-term current use of insulin (HCC) Discharge Disposition: Home or Self Care05/10/2025Transcribe Orders [facility] [address] [place] [address] [place] [address] Darling Gabriel APRN - CNP Postmenopausal status (Primary Dx); Encounter for screening mammogram for malignant neoplasm of cwwyck7105/10/2025 Transcribe Orders [facility] Pre Access [address] [place] [address] Darling Gabriel APRN - CNP Postmenopausal status (Primary Dx); Encounter for screening mammogram for malignant neoplasm of breastfrom Last 3 Months Immunizations ImmunizationAdministration DatesNext DueInfluenza, FLUARIX, FLULAVAL, FLUZONE (age 6 mo+) and AFLURIA, (age 3 y+), Quadv PF, 0.5mL06/20/2020 Social History Tobacco UseTypesPacks/DayYears UsedDateSmoking Tobacco: NeverSmokeless Tobacco: Never Tobacco Cessation:Counseling Given: No Alcohol UseStandard Drinks/WeekCommentsYes2 (1 standard drink = 0.6 oz pure alcohol)[facility] UtilitiesAnswerDate RecordedIn the past 12 months has the [email or web address], gas, oil, or water [employer] threatened to shut off services in your [...] heating?Not hard at all 4PHQ-2AnswerDate RecordedPHQ-9 Total Ovaxo376Hunger Vital Sign AnswerDate RecordedWithin the past 12 [...] or from getting things needed for daily living?10/29/2024Housing Stability Vital SignAnswerDate RecordedUnable to Pay for Housing in the Last YearNot on file04/27/2023Number of Places Lived in the Last YearNot on file04/27/2023In the last 12 months, was there a time when you did not have a steady place to sleep or slept in [facility] (including now)?No04/27/2023Housing Stability Vital SignAnswerDate RecordedIn the last 12 months, was there a time when you were not able to pay the mortgage or rent on time?10/29/2024In the past 12 months, how many times have you moved where you were living?t any time in the past 12 months, were you homeless or living in a care home (including now)?10/29/2024Food InsecurityAnswerDate RecordedWithin the past 12 months, you worried that your food would run out before you got the money to buymore.Within the past 12 months, the food you bought just didn't last and you didn't have money to get more.1 10/29/2024CommentsNoSex and Gender InformationValueDate RecordedSex Assigned at WjnlmArjffv65/08/2025 1:04 PM EDTLegal AjiWiarlx38/10/2013 6:00 PM ESTGender IdentityNot on fileSexual OrientationNot on file Last Filed Vital Signs Vital SignReadingTime TakenCommentsBlood Brqetpux408/8805/09/2025 3:22 PM EDT Eadck118305/09/2025 3:21 PM JYWXxxoxpzokee95.1 ??C (96.9 ??F)05/09/2025 3:21 PM EDTRespiratory Fbyc146608/24/2023 12:10 PM ESTOxygen Hbozmckypp83%05/09/2025 3:21 PM EDTInhaled Oxygen Concentration--Kcofma809.4 kg (225 lb 12.8 oz)05/09/2025 3:21 PM DBKNiishq359.7 cm (5' 8 )05/09/2025 3:21 PM EDTBody Mass Index34.33 05/09/2025 3:21 PM EDT Plan of Treatment DateTypeDepartmentCare Team (Latest Contact Info)Fnllggyfhsu90/07/2026 4:00 PM ESTOffice Visit [facility] [address] [place] [address] Cody Maya, DO [address] [place] [address] 3 mo f/u011/27/2025 3:30 PM EDTOffice Visit [facility] [address] [place] [address] Cody Maya DO [address] [place] [address] 3 mo f/uHealth MaintenanceDue DateLast DoneCommentsHIV volybj1410/25/1988Diabetic retinal exam10/26/1991Hepatitis C dfggpm1010/26/1991DTaP/Tdap/Td vaccine (1 - Tdap)1992Hepatitis B vaccine (1 of 3 - 19+ 3-dose series)1992 Pneumococcal 50+ years Vaccine (1 of 2 - PCV)1992Pap smear1994 FIT/FOBT: Average risk2018Fecal-DNA (Cologuard): Average risk2018 Sigmoidoscopy/CT slidbdtuocpb32/05/2019Shingles vaccine (1 of 2)10/26/2023Flu vaccine (#1)512/06/2022, 06/20/2020COVID-19 Vaccine (3 - season)509/, 1Depression Uhwgvu76603/04/2025, 5A1C test (Diabetic or Prediabetic)603/07/2025, 07/26/2024, 11/21/2023, Additional history existsGFR test (Diabetes, CKD 3-4, OR last GFR 15-59)/, 11/21/20237869Zuqewm87/21/202603/, 11/21/2023, 3Diabetic foot exam/, 02/05/2025, 02/05/2025, Additional history existsCervical cancer uchcdi9804/30/2026HPV (without or with Pap)/iabetic Alb to Cr ratio (uACR) test/ Breast cancer , 03/28/2024, 12/18/2022, Additional history jqycwvNuxvvghvutu65/27/203109/olorectal Cancer Vrtqjq1105/19/2031 Diabetes vdjbniBtwybfjbpwvr93/12/2025, 07/26/2024, 11/21/2023, Additional history existsHepatitis A vaccineAged [...] Procedures Procedure NamePriorityDate/TimeAssociated DiagnosisCommentsMAM WILNER DIGITAL SCREEN CIEWFKEVTGipotlh52/01/2025 4:18 PM EDT Encounter for screening mammogram for malignant neoplasm of breast DEXA BONE DENSITY AXIAL DDTZIYTORpzzwny94/01/2025 4:07 PM EDT Postmenopausal status ALBUMIN/CREATININE RATIO, SLYASApcfjeu29/21/2025 7:57 AM EDT Type 2 diabetes mellitus without complication, without long-term current use of insulin (HCC) TSH REFLEX TO MT8Jelvcfz82/21/2025 7:56 AM EDT Hormone imbalance VITAMIN D 25 VQTZFTUCbsnqon26/21/2025 7:56 AM EDT Vitamin D deficiency CORTISOL DRNWEUbnblgg08/21/2025 7:56 AM EDT Hormone imbalance ESTROGENS, JCAOXOLAMGKLLuqapca72/21/2025 7:56 AM EDT Hormone imbalance DHEA-AJRXRBPTprheur06/21/2025 7:56 AM EDT Hormone imbalance TESTOSTERONE, FREE, XCCVOKblhxei76/21/2025 7:56 AM EDT Hormone imbalance COMPREHENSIVE METABOLIC HUGDEKzjvnis27/21/2025 8:26 AM EDT Encounter for routine adult health examination without abnormal findings LIPID, CMZPSJUJlwxlzi32/21/2025 8:26 AM EDT Encounter for routine adult health examination without abnormal findings POCT GLYCOSYLATED HEMOGLOBIN (HGB A1C)Ilydlfi0511/01/2024 4:35 PM EDT Type 2 diabetes mellitus without complication, without long-term current use of insulin (HCC) HM UJFKNASXLHYYjzosbp17/27/2021 4:58 PM EDTHM PAIMxgcrvj98/08/2021 1:03 PM EDT from Last 3 Months [...] quality standards act) requirements and the ACR ([employer]) recommendations, a letter has [...] Automated Breast Ultrasound (ABUS) in accordance with [place] law HB 371. -We appreciate being involved in this patient's care. Performing Facility: [place] [address] Narrative 05/24/2025 8:06 AM EDT EXAM: RENETTA [...] suspicious microcalcifications is seen. Authorizing ProviderResult TypeResult StatusDarling Gabriel HARDWOOD FLOOR FINISHER - CNPG MAMMOGRAPHY ORDERABLESFinal Result * DEXA BONE DENSITY [...] prevention and treatment of osteoporosis. Osteoporos Int. 2021;33(10):5761-0441. doi: 10.1007/j50772-010-33950-c. Epub 2021Dec 18. Erratum in: Osteoporos Int. 2021Mar 19;: PMID: 53480005; PMCID: [id number]. Narrative 05/24/2025 1:01 PM EDT EXAM: DEXA BONE DENSITY AXIAL SKELETON HISTORY: Postmenopausal status. COMPARISON: None. TECHNIQUE: Mobixell NetworksF Scanner [id number]. FINDINGS: T-score lumbar spine normal at 2.7. T-score hips normal with mean total hip T-score 1.4. Procedure Note Julius Zaragoza Jr., MD - 05/24/2025 EXAM: DEXA BONE DENSITY AXIAL SKELETON HISTORY: Postmenopausal status. COMPARISON: None. TECHNIQUE: Might[employer] RDF Scanner [id number]. FINDINGS: T-score lumbar spine normal at 2.7. [...] 10-year hip fracture risk >= 3% or u56-cllx major osteoporosis-related fracture risk >= 20% (i.e., [...] SL, Vale KL, Chanda EM, Kolton KG, Singer FULLER,[place] ES. The clinician's guide to prevention and treatment of osteoporosis.Osteoporos Int. 2021;33(10):0758-8375. doi: 10.1007/w31093-620-97481-g. Epub . Erratum in: Osteoporos Int. 2021Mar 19;: PMID: 11584605; PMCID: [id number]. Authorizing ProviderResult TypeResult StatusDarling Gabriel HARDWOOD FLOOR FINISHER - CNPIMG DEXA ORDERABLESFinal Result * Albumin/Creatinine Ratio, Urine (05/13/2025 7:57 AM EDT)ComponentValueRef RangeTest MethodAnalysis TimePerformed AtPathologist SignatureAlbumin Urine<12 0 - 20 mg/L05/13/2025 7:57 AM EDTMERCY LABORATORIESCreatinine, Ur106.028.0 - 217.0 mg/dL05/13/2025 7:57 AM EDTMERCY LABORATORIESComment:Reference range defined for 1st morning urineMicroalb/Sheet Mill Supervisor. RatioCan not be calculated0.0 - 25.0 mcg/mg creat05/13/2025 7:57 AM EDTMERCY LABORATORIESSpecimen (Source) Anatomical Location / LateralityCollection Method / VolumeCollection Time Received TimeUrine (Urine)05/13/2025 7:57 AM EDT05/13/2025 7:59 AM EDT Narrative Authorizing ProviderResult TypeResult StatusCody S Francesco DOURINE ORDERABLES Final ResultPerforming OrganizationAddressCity/State/ZIP CodePhone Number [facility] [address] [place] [address], [facility] [phone] [employer] [address] [place], [place] [address] [phone] * TSH reflex to FT4 (05/13/2025 7:56 AM EDT)ComponentValueRef RangeTest Method Analysis TimePerformed AtPathologist SignatureTSH1.140.27 - 4.20 uIU/mL 05/13/2025 7:56 AM EDNorth [facility] LABSpecimen (Source)Anatomical Location / LateralityCollection Method / VolumeCollection TimeReceived Time BloodBLOOD SPECIMEN / Oymwayl7905/13/2025 7:56 AM EDT05/13/2025 7:58 AM EDT Narrative Authorizing ProviderResult TypeResult StatusCanyon Ridge Hospital DOCHEMISTRY ORDERABLESFinal ResultPerforming OrganizationAddressCity/State/ZIP CodePhone Number [facility] [address] [place] [place] [address], [facility] [phone] * Estrogens, Fractionated (05/13/2025 7:56 AM EDT)ComponentValueRef RangeTest MethodAnalysis TimePerformed AtPathologist SignatureEstradiol6.7pg/mL 05/13/2025 7:56 AM EDTARUP LABORATORYComment: (NOTE) REFERENCE INTERVAL: Estradiol by Crusher For a complete set of all established reference intervals, refer to SterraClimb/Tests/Pub/[id number]. This test was developed and its performance characteristics determined by [facility]. It has not been cleared or approved by the US Food and Drug Administration. This test was performed in a CLIA certified laboratory and is intended for clinical purposes. Oxnfkxr00.8pg/mL05/13/2025 7:56 AM EDTARUP LABORATORYComment: (NOTE) INTERPRETIVE INFORMATION: Estrone by Crusher For a complete set of all established reference intervals, refer to SterraClimb/Tests/Pub/[id number]. This test was developed and its performance characteristics determined by [facility]. It has not been cleared or approved [...] of all established reference intervals, refer to ltd.NurseGrid/Tests/Pub/[id number]. Performed By: [facility] [address] [place] [address] Mental Health Worker: Samuel Mallory MD, PhD CLIA Number: [id number] Specimen (Source)Anatomical Location / LateralityCollection Method / Volume Collection TimeReceived TimeBLOOD SPECIMEN / Kzlsyyx8505/13/2025 7:56 AM EDT 05/13/2025 7:58 AM EDT Narrative Authorizing ProviderResult TypeResult [facility] DOCHEMISTRY ORDERABLESFinal ResultPerforming OrganizationAddressCity/State/ZIP CodePhone Number [facility] [address] [place] [address], [facility] [phone] [facility] [address] [phone] * Vitamin D 25 Hydroxy (05/13/2025 7:56 AM EDT)ComponentValueRef RangeTest MethodAnalysis TimePerformed AtPathologist SignatureVit D, 25-Nqcrqoh63.630.0 - 100.0 ng/mL05/13/2025 7:56 AM EDTMREGENCY HOSPITAL COMPANY LABORATORIESComment: Reference Range: Vitamin D status ? Range Deficiency <20 ng/mL Mild Deficiency ? 20-30 ng/mL Sufficiency ?30-100 ng/mL Toxicity >100 ng/mL Specimen (Source)Anatomical Location / LateralityCollection Method / Volume Collection TimeReceived TimeBloodBLOOD SPECIMEN / Enbjkdt8605/13/2025 7:56 AM EDT 05/13/2025 7:58 AM EDT Narrative Authorizing ProviderResult TypeResult [facility] DOCHEMISTRY ORDERABLESFinal ResultPerforming OrganizationAddressty/State/ZIP CodePhone Number [facility] [address] [place] [address], [facility] [phone] [employer] [address] [place] [address], [facility] [phone] * DHEA-Sulfate (05/13/2025 7:56 AM EDT)ComponentValueRef RangeTest Method Analysis TimePerformed AtPathologist SignatureDHEAS (DHEA Sulfate)162.035.4 - 256 ug/dL05/13/2025 7:56 AM EDTMERCY LABORATORIESSpecimen (Source)Anatomical Location / LateralityCollection Method / VolumeCollection TimeReceived Time BLOOD SPECIMEN / Mlfkiwz5805/13/2025 7:56 AM EDT05/13/2025 7:58 AM EDT Narrative Authorizing ProviderResult TypeResult StatusCanyon Ridge Hospital DOCHEMISTRY ORDERABLESFinal ResultPerforming OrganizationAddressCity/State/ZIP CodePhone Number [facility] [address] [place] [address], [facility] [phone] [employer] [address] [place] [address], [facility] [phone] * Testosterone, free, total (05/13/2025 7:56 AM EDT)ComponentValueRef RangeTest MethodAnalysis TimePerformed AtPathologist TypefysgiRqopoowwrkuf766 - 41 ng/dL 05/13/2025 7:56 AM EDTMERCY LABORATORIESSex Hormone Zkphtpr28509 - 125 nmol/L 05/13/2025 7:56 AM EDTMERCY LABORATORIESTestosterone, Free2.11.1 - 5.8 pg/mL 05/13/2025 7:56 AM EDTMERCY LABORATORIESComment: Post-menopausal range: 0.6-3.8 The concentration of free testosterone is derived from a mathematical expression based on the constant for the binding of testosterone to albumin and/or sex hormone binding globulin. ? Specimen (Source)Anatomical Location / LateralityCollection Method / Volume Collection TimeReceived TimeBloodBLOOD SPECIMEN / Rczjfxf6605/13/2025 7:56 AM EDT 05/13/2025 7:58 AM EDT Narrative Authorizing ProviderResult TypeResult StatusCanyon Ridge Hospital DOCHEMISTRY ORDERABLESFinal ResultPerforming OrganizationAddressty/State/ZIP CodePhone Number [facility] [address] [place] [address], [facility] [phone] [facility] [employer] [address] [place] [address], [facility] [phone] * (ABNORMAL) Cortisol Total (05/13/2025 7:56 AM EDT)ComponentValueRef RangeTest MethodAnalysis TimePerformed AtPathologist CjaroaniwZptohkck33.7(H)2.5 - 19.5 ug/dL05/13/2025 7:56 AM EDHonglian Communication Networks Systems Co. Ltd LABORATORIESComment: ? Cortisol Reference Range: ?AM ? 6.0-18.4 ?PM ? 2.7-10.5 Cortisol Collection IvcdOQYLG65/21/2025 7:56 AM [facility] LAB Specimen (Source)Anatomical Location / LateralityCollection Method / Volume Collection TimeReceived TimeBloodBLOOD SPECIMEN / Ikupcbq6505/13/2025 7:56 AM EDT 05/13/2025 7:58 AM EDT Narrative Authorizing ProviderResult TypeResult StatusGregory S Francesco DOCHEMISTRY ORDERABLESFinal ResultPerforming OrganizationAddressCity/State/ZIP CodePhone Number [facility] [address] [place], [place] [address] [phone] [facility] [address] [place] [id number] [phone] * (ABNORMAL) Lipid, Fasting (11/10/2024 8:26 AM EDT)ComponentValueRef RangeTest MethodAnalysis TimePerformed AtPathologist SignatureCholesterol, Ytznzgj034(H) 0 - 199 mg/dL11/10/2024 8:26 AM EDVista TherapeuticsY LABORATORIESComment: Cholesterol Guidelines: <200 Desirable 200-240 ??Borderline >240 Undesirable HDL53>40 mg/dL11/10/2024 8:26 AM EDTMTelepartnerY LABORATORIESComment: HDL Guidelines: <40 Undesirable 40-59 ?Borderline >59 Desirable LDL Mimpfwfprty545(H)0 - 100 mg/dL11/10/2024 8:26 AM EDTMERCY LABORATORIES Comment: LDL Guidelines: <100 Desirable 100-129 ?? Near to/above Desirable 130-159 ?? Borderline >159 Undesirable Direct (measured) LDL and calculated LDL are not interchangeable tests. Chol/HDL Ratio3.803 8:26 AM EDTMERCY LABORATORIESTriglyceride, Fasting 1040 - 149 mg/dL11/10/2024 8:26 AM EDTMERCY LABORATORIESComment: Triglyceride Guidelines: <150 Desirable 150-199 ??Borderline 200-499 ??High >499 Very high Based on AHA Guidelines for fasting triglyceride, May 2012. POUU797 - 30 mg/dL11/10/2024 8:26 AM EDTMMowbly LABORATORIESSpecimen (Source) Anatomical Location / LateralityCollection Method / VolumeCollection Time Received TimeBloodBLOOD SPECIMEN / Ekyrerv0511/10/2024 8:26 AM EDT11/10/2024 8:27 AM EDT Narrative Authorizing ProviderResult TypeResult StatusGregory S Francesco DOCHEMISTRY ORDERABLESFinal ResultPerforming OrganizationAddressCity/State/ZIP CodePhone Number [facility] [address] [place] [address], [facility] [phone] [employer] [address] [place] [address], [facility] [phone] * (ABNORMAL) Comprehensive Metabolic Panel (11/10/2024 8:26 AM EDT)Component ValueRef RangeTest MethodAnalysis TimePerformed AtPathologist SignatureSodium 746924 - 144 mmol/L11/10/2024 8:26 AM [facility] LABPotassium4.1 3.7 - 5.3 mmol/L11/10/2024 8:26 AM [facility] KKRObkklauh26220 - 107 mmol/L11/10/2024 8:26 AM [facility] MMTUS20751 - 31 mmol/L 11/10/2024 8:26 AM [facility] LABAnion Gap6(L)9 - 17 mmol/L 11/10/2024 8:26 AM [facility] NKZXmfywcy2063 - 99 mg/dL11/10/2024 8:26 AM [facility] TVQEHH507 - 20 mg/dL11/10/2024 8:26 AM EDT [facility] LABCreatinine0.80.5 - 0.9 mg/dL11/10/2024 8:26 AM EDT [facility] LABEst, Glom Filt Rate89>60 mL/min/1.62j51011/10/2024 8:26 AM [facility] LABComment: ? These results are not intended [...] secretion. Calcium8.98.6 - 10.4 mg/dL11/10/2024 8:26 AM [facility] LABTotal Protein6.96.4 - 8.3 g/dL11/10/2024 8:26 AM [facility] LABAlbumin3.9 3.5 - 5.2 g/dL11/10/2024 8:26 AM [facility] LABAlbumin/Globulin Ratio1.31.0 - 2.503 8:26 AM [facility] LABTotal Bilirubin 0.40.3 - 1.2 mg/dL11/10/2024 8:26 AM [facility] LABAlkaline Gobarebltzm0378 - 104 U/L11/10/2024 8:26 AM [facility] LAXIIH021 - 33 U/L11/10/2024 8:26 AM [facility] HHYDRJ04<32 U/L11/10/2024 8:26 AM [facility] LABSpecimen (Source)Anatomical Location / Laterality Collection Method / VolumeCollection TimeReceived TimeBloodBLOOD SPECIMEN / Ecdiidg6011/10/2024 8:26 AM EDT11/10/2024 8:27 AM EDT Narrative Authorizing ProviderResult TypeResult StatusGregory S Francesco DOCHEMISTRY ORDERABLESFinal ResultPerforming OrganizationAddressCity/State/ZIP CodePhone Number [facility] [address] [place] [address], [facility] [phone] * POCT glycosylated hemoglobin (Hb A1C) (11/01/2024 4:35 PM EDT)ComponentValue Ref RangeTest MethodAnalysis TimePerformed AtPathologist SignatureHemoglobin A1C5.4%Specimen (Source)Anatomical Location / LateralityCollection Method / VolumeCollection TimeReceived TimeBLOOD SPECIMEN / Matkjil5711/01/2024 4:35 PM EDT Narrative Authorizing ProviderResult TypeResult StatusCody Maya [facility] TEST ORDERABLESFinal Result * COLONOSCOPY (05/19/2021 4:58 PM EDT) Narrative Authorizing ProviderResult TypeResult StatusHistorical Provider MDKEHINDE MAINTENANCEFinal Result * HPV (04/30/2021 1:03 PM EDT) Impressions Bree Bustillo MA - 04/30/2021 1:03 PM EDT PAP [id number] Component Ref Range & Units 2 yr ago Comments HUMAN [place] VIRUS 16+18+31+33+35+39+45+51+52+56+58+59+66+68 DNA: Negative Negative This nucleic acid amplification test detects fourteen high-risk HPV types (16,18,31,33,35,39,45,51,52,56,58,59,66,68) without differentiation. Performed at: [facility] [address] [place] [address] ??ANOOP Ba [id number] ?MD Soraida Giles Performed at: =[facility] [address] [place] [address] ??ANOOP Ba [id number] ?MD Soraida Giles CYTOLOGY REPORT:FIND:PT:CVX/VAG:DOC:CYTO STAIN Note TESTS ? RESULT ??FLAG ??UNITS ?REF RANGE ??LAB Clinician Provided Cytology Information Source.............[employer] No. of containers..01 ThinPrep Vial DIAGNOSIS: ?01 NEGATIVE FOR INTRAEPITHELIAL LESION OR MALIGNANCY. CELLULAR CHANGES ASSOCIATED WITH INFLAMMATION ARE PRESENT. Specimen adequacy: ?01 Satisfactory for evaluation. ??Endocervical and/or squamous metaplastic cells (endocervical component) are present. Performed by: ? 01 Karina Milligan, Hyperion Administrator (ASCP) . ? 01 Note: ? Note [...] High,A-Abnormal,AA-Critical Abnormal Performed at: 01 WB ?[facility] [address] [place], [place] ??[id number] Tisha Quigley MD, GYNECOLOGICAL BODY SITE ENDOCERVIX COLLECTION TECHNIQUE BRUSH-SPATULA PERFORMING LAB: see note RAOUL [facility] Laboratory unless otherwise specified [address] [place] [address] Resulting Agency [facility] Specimen Collected: 04/30/21 Performed by: [facility] Last Resulted: 05/05/21 Received From: [facility] Result Received: 08/24/23 11:46 View Encounter ?? Narrative Authorizing ProviderResult TypeResult StatusHistorical Provider MDMERCY [facility] MAINTENANCEEdited Result - Final from Last 3 Months or Most Recently Relevant to Health Maintenance Insurance Care Teams Team MemberRelationshipSpecialtyStart DateEnd Date Cody Maya DO [address] [place], [place] [id number] PCP - Generalmily Medicine03/12/23
--- OUTSIDE RECORDS SUMMARY | 2025-08-09 09:25 | XMS_ITS | Encounter Summary ---
Author Organization Facundo Devine [facility] Address [address], [address] [place] [address] Care Team Providers Care Aoc Director Combat Operations Officer Name Role Phone Cody Maya DO Primary Care Provider [phone] Reason for Visit * ReasonOnset DateCommentsMedication Gqvsax1207/28/2025 Encounter Details DateTypeDepartmentCare Team (Latest Contact Info)Rsyljxttiol45/06/2025Refill [facility] [address] [place] [address] Cody Maya DO [address] [place] [address] Medication Refill Social History Tobacco UseTypesPacks/DayYears UsedDateSmoking Tobacco: NeverSmokeless Tobacco: NeverAlcohol UseStandard Drinks/WeekCommentsYes2 (1 standard drink = 0.6 oz pure alcohol)[facility] UtilitiesAnswerDate RecordedIn the past 12 months has the [employer], oil, or water [employer] threatened to shut off services in your home?No 10/29/2024UDIT-CAnswerDate RecordedQ1: How often do you have a [...] medical care, and heating?Not hard at all 12/04/2024PHQ-2AnswerDate RecordedPHQ-9 Total Ssvcb045Hunger Vital Sign AnswerDate RecordedWithin the past 12 [...] steady place to sleep or slept in [facility] (including now)?No04/27/2023Housing Stability Vital SignAnswerDate RecordedIn the last 12 months, was there a time when you were not able to pay the mortgage or rent on time?No10/29/2024In the past 12 months, how many times have you moved where you were living?t any time in the past 12 months, were you homeless or living in a assisted (including now)?10/29/2024Food InsecurityAnswerDate RecordedWithin the past 12 months, you worried that your food would run out before you got the money to buymore.Within the past 12 months, the food you bought just didn't last and you didn't have money to get more.1 10/29/2024CommentsNoSex and Gender InformationValueDate RecordedSex Assigned at EnebsDyqcpz07/08/2025 1:04 PM EDTLegal LnlEtqqfu77/10/2013 6:00 PM ESTGender IdentityNot on fileSexual OrientationNot on filedocumented as of this encounter Plan of Treatment DateTypeDepartmentCare Team (Latest Contact Info)Evnijucwjgf12/07/2026 4:00 PM ESTOffice Visit [facility] [address] [place] [address] Cody Maya DO [address] [place] [address] 3 mo f/u011/27/2025 3:30 PM EDTOffice Visit [facility] [address] [place] [address] Cody Maya DO [address] [place] [address] 3 mo f/udocumented as of this encounter Visit Diagnoses Not on filedocumented in this encounter Care Teams Team MemberRelationshipSpecialtyStart DateEnd Date Cody Maya DO [address] [place] [id number] PCP - GeneralFamily Medicine03/12/23documented as of this encounter
[2025-08-09 09:41] VITALS: BP 158/75; PULSE 95; TEMP 36.4; O2SAT 97
[2025-08-09 10:51] VITALS: BP 147/82; BP 154/94; PULSE 96; PULSE 97; O2SAT 98
[2025-08-09] MEDS: LIDOCAINE HCL 1%-EPINEPHRINE 1:100,000 20 ML MDV 5 ML INJ (10:55)
== END 2025-08-09 11:13 | disposition home or self-care (01) ==
LOC: SURGOUT 09:22
PROVIDERS: PCP Family Medicine; Visit Provider Otolaryngology
PROC: (CPT 41112; principal; 2025-08-09 10:30)
DX: K14.8 Other diseases of tongue (principal)
CPT/HCPCS: 41112; 88305